=== PATIENT | female | born 1955 | race Caucasian/White ===

== ENCOUNTER 2019-09-02 13:19 | Outpatient (CLI) | payer MEDICARE, SELFPAY ==
--- NOTE | 2019-09-02 13:40 | XR_ITS ---
WS: [id number] LUMBAR SPINE TECHNIQUE: 3 views of the lumbar spine CLINICAL INFORMATION: ACUTE LUMBAR BACK PAIN COMPARISON: None. FINDINGS: Osteopenia. Mild lumbar curve. No acute appearing compression fractures. Mild spondylitic changes. Ch ronic appearing mild compression of the superior endplate at L1 with slight anterior wedging appears new since February 21, 2019 but has a chronic appearance with slight sclerosis. Chronic concave super ior endplate deformity L5 unchanged. Slight anterolisthesis L4 on L5. Moderate facet arthropathy L5-S 1. XR/XR lumbar spine 2-3V* [id number] IMPRESSION: 1. Mild compression of the superior endplate L1 with anterior wedging appears new since February 21, 2019 but has a chronic appearance with sclerosis. Minima l compression. 2. Grade 1 anterolisthesis L4 on L5 is unchanged. 3. Osteopenia. 4. Mild disc space narrowing L3-L4 and L5-S1. 5. Moderate facet arthropathy L5-S1.
== END 2019-09-02 13:20 | disposition home or self-care (01) ==
LOC: RADWPI 13:23
PROVIDERS: Family Provider Family Medicine; PCP Family Medicine; Visit Provider Family Medicine
DX: M54.5 Low back pain (principal); M85.88 Other specified disorders of bone density and structure, other site; M47.817 Spondylosis without myelopathy or radiculopathy, lumbosacral region; M48.07 Spinal stenosis, lumbosacral region
CPT/HCPCS: 72100

== ENCOUNTER 2019-09-17 14:18 | Outpatient (CLI) | payer MEDICARE, SELFPAY ==
--- NOTE | 2019-09-17 14:25 | USCV_ITS ---
India Klein Age: 64 Gender: F : 1955 Exam Date: 09/17/2019 14:25 Ordering Phys: Felisa Rosenthal MD Technologist: Danish Acuna [place] [facility] [place]: [place] Risk Factors: Previous Vascular Surgery: Right Brachial BP: / Left Brachial BP: / Right Left Velocity (cm/s) Spectral Plaque Velocity (cm/s) Spectral Plaque Syst/Diast Broadening Syst/Diast Broadening 71.70/ 14.30 Prox CCA 79.10 / 13.50 54.00/ 12.10 Mid CCA 63.80 / 15.40 63.90/ 14.30 Distal CCA 52.80 / 11.00 92.00/ 21.90 Hetro Prox ICA 72.60 / 19.35 Hetro 111.50/27.20 Mid ICA 84.30 / 23.90 120.10/38.60 Distal ICA 89.50 / 27.00 67.30 ECA 58.60 1.68 ICA/CCA 1.13 Antegrade Vertebral Antegrade 42.90/ 10.00 cm/s 66.60/ 16.60 cm/s Tri Subclavian Tri 63.00 104.0 0 FINDINGS Comparison: none available. No significant elevation of systolic or diastolic velocities. Waveforms are normal. Soft plaque in the proximal left common carotid artery, greater than 3mm diameter. CONCLUSIONS Bilateral ICA stenosis less than 50%. Soft plaque in the proximal left CCA. Dr. Teresa Dean DO (Electronically Signed) Final Date: 18 Sep 2019 07:46 S
--- NOTE | 2019-09-17 14:26 | USCV_ITS ---
India Klein Age: 64 Gender: F : 1955 Exam Date: 09/17/2019 14:36 Ordering Phys: Felisa Rosenthal MD Technologist: Danish Acuna Exam Location: [facility] [place] Indication: PAD HX OF LT LEG STENOSIS Risk Factors: Previous Vascular Surgery: None RIGHT LEFT BP: 144.0 / 71.00 BP: 152.0/ 74.00 0 0 Waveform Velocity (cm/s) Velocity (cm/s) Waveform Triphasic 103.6 Iliac Prox 116.9 Triphasic Triphasic 100.3 Iliac Mid 140.3 Triphasic Triphasic 119.1 Iliac Distal 79.2 Triphasic Triphasic 101.4 EQUINE DENTIST 78.7 Triphasic Triphasic 86.0 SFA Prox 122.3 Triphasic Triphasic 104.7 SFA Mid 111.3 Triphasic Triphasic 97.0 SFA Dist 111.3 Triphasic Triphasic 86.0 POP 68.2 Triphasic Biphasic 61.7 ADDICTION NURSE 55.7 Triphasic Biphasic 34.0 DPA 54.2 Triphasic JOSEPH 1.0 1.2 FINDINGS Normal resting ABIs bilaterally Near normal arterial Doppler waveforms bilaterally Intimal thickening and minimal plaques in the iliac and femoral arteries bilaterally CONCLUSIONS No significant arterial obstruction, based on the above findings Dr Shane Zhao MD [facility] (Electronically Signed) Final Date: 17 Sep 2019 19:10 S
== END 2019-09-17 14:19 | disposition home or self-care (01) ==
LOC: RAD 14:23
PROVIDERS: PCP Family Medicine; Visit Provider Family Medicine
DX: R55 Syncope and collapse (principal); I73.9 Peripheral vascular disease, unspecified; M54.5 Low back pain; I65.23 Occlusion and stenosis of bilateral carotid arteries
CPT/HCPCS: 93880; 93925

== ENCOUNTER 2019-09-26 11:43 | Outpatient (CLI) | payer MEDICARE, SELFPAY ==
--- NOTE | 2019-09-26 11:49 | XR_ITS ---
WS: [id number] THORACIC SPINE TECHNIQUE: AP and lateral views are performed. HISTORY: DORSALGIA, UNSPECIFIED, COMPRESSION FRACTURE OF SPINE COMPARISON: 10/11/2018 Mild increase in the thoracic kyphosis. Disc space narrowing and desiccation with small endplate oste ophytes throughout the thoracic spine. No fractures. No osteoblastic or osteolytic bone disease. Pedi cles are all identified. Mild atherosclerosis aorta. Numerous surgical clips and sutures in the LEFT upper abdomen. XR/XR thoracic spine 3V* [id number] IMPRESSION: Moderate thoracic spondylosis. No fractures.
== END 2019-09-26 11:44 | disposition home or self-care (01) ==
LOC: RADWPI 11:46
PROVIDERS: Family Provider Family Medicine; PCP Family Medicine; Visit Provider Family Medicine
DX: M54.9 Dorsalgia, unspecified (principal); M48.50XA Collapsed vertebra, not elsewhere classified, site unspecified, initial encounter for fracture; M47.814 Spondylosis without myelopathy or radiculopathy, thoracic region
CPT/HCPCS: 72072

== ENCOUNTER 2019-10-16 07:56 | Outpatient (CLI) | payer MEDICARE, SELFPAY ==
--- NOTE | 2019-10-16 08:12 | MR_ITS ---
WS: [id number] MRI LUMBAR SPINE NONCONTRAST HISTORY: PAIN IN RIGHT LOWER LEG COMPARISON: 03/06/2019 TECHNIQUE: Sagittal and axial multisequence imaging is submitted. Increase in thoracic kyphosis. Schmorl's nodes superior endplate of T6. Hemangioma T10. Slight increase in lumbar lordosis. There are 6 nonrib-bearing lumbar type vertebral bodies. This [facility] ilar pattern of numbering was used on 03/06/2019. Mild disc space narrowing and desiccation. Anterior wedging of L2 is stable. No acute new fracture. Conus terminates normally at L2. L1-L2: Mild facet arthritis. No stenosis. L2-L3: Mild annular disc bulging without stenosis. L3-L4: Mild annular disc bulging and facet arthritis. No significant stenosis. Very mild narrowing of the lateral recesses. Similar to the prior study. Small amount of fluid in the RIGHT facet joint. L4-L5: Moderate facet joint arthritis. Osteophyte versus complex synovial cyst from the LEFT facet en croaches on the lateral thecal sac. The L5 nerve root is being displaced anteriorly. Similar in appea jame to the prior study. Mild central stenosis with mild bilateral subarticular recess stenosis grea test on the LEFT. L5-L6: Less than 2 mm anterolisthesis of L5 with annular disc bulging. Facet and ligamentum flavum ar thritis. Facet joint arthritis encroaching upon the lateral recesses and abutting the L6 nerve roots. Similar to the prior study. L6-S1: Mild disc bulging with no stenosis. MR/MR lumbar spine wo con* [id number] IMPRESSION: 1. 6 lumbar type vertebral bodies. This numbering pattern will be important if surgery is ever contemplated. Similar number pattern used as compared to 03/06. 2. No acute lumbar spine fractures. Stable L2 anterior compression fracture. 3. Osteophyte versus complex synovial cyst on the LEFT at L4-5 encroaching upo n the LEFT lateral thecal sac. Resulting in mild central with bilateral subarti cular recess stenosis, greatest on the LEFT. 4. Facet joint encroachment upon the lateral recesses displacing the L6 nerve roots bilaterally at L5-L6. Similar to the prior study.
== END 2019-10-16 07:57 | disposition home or self-care (01) ==
LOC: RADSHAW 08:11
PROVIDERS: PCP Family Medicine; Visit Provider Family Medicine
DX: M79.661 Pain in right lower leg (principal); M48.56XA Collapsed vertebra, not elsewhere classified, lumbar region, initial encounter for fracture; M25.78 Osteophyte, vertebrae
CPT/HCPCS: 72148

== ENCOUNTER 2019-10-31 12:27 | Outpatient (CLI) | payer MEDICARE, SELFPAY ==
--- NOTE | 2019-10-31 12:49 | XRR_ITS ---
PROCEDURE INFORMATION: Exam: XR Lumbosacral Spine, 2 or 3 Views Exam date and time: 10/31/2019 1:01 PM Age: 64 years old Clinical indication: Low back pain; Patient HX: Compression fracture spontaneously-per patient TECHNIQUE: Imaging protocol: XR of the lumbosacral spine, 2 or 3 views. COMPARISON: 1. CR XR lumbar spine 2-3V* [id number] 09/02/2019 1:48 PM 2. Lumbar spine examination 02/21/2019 FINDINGS: Vertebrae: There is a compression fracture present involving the superior endplate of the L1 vertebral body. This finding was not present on prior examination from 2018 but was seen on more recent examination of 2019. 1st degree spondylolisthesis L4-L5 . This finding is stable since prior. There is mild osteoarthritis seen with bone spurs in the anterior aspect of multiple lumbar vertebral bodies. Soft tissues: Calcified aorta without aneurysmal dilatation. XR/XR lumbar spine 2-3V* [id number] IMPRESSION: 1. Subacute compression fracture superior endplate L1 vertebral body 2. Mild osteoarthritis 3. First degree spondylolisthesis L4-L5 stable since prior
== END 2019-10-31 12:28 | disposition home or self-care (01) ==
LOC: RAD 12:31
PROVIDERS: PCP Family Medicine; Visit Provider Family Medicine
DX: S32.010A Wedge compression fracture of first lumbar vertebra, initial encounter for closed fracture (principal); X58.XXXA Exposure to other specified factors, initial encounter; M47.816 Spondylosis without myelopathy or radiculopathy, lumbar region; M43.16 Spondylolisthesis, lumbar region
CPT/HCPCS: 72100

== ENCOUNTER → 2020-04-01 09:33 | Outpatient (BNVA) | payer MEDICARE, SELFPAY | PROVIDERS: PCP Family Medicine; Referring Provider Family Medicine; Visit Provider Anesthesiology Pain Medicine | DX: M54.9 Dorsalgia, unspecified (principal); M47.816 Spondylosis without myelopathy or radiculopathy, lumbar region; M43.10 Spondylolisthesis, site unspecified; M54.16 Radiculopathy, lumbar region; M51.36 Other intervertebral disc degeneration, lumbar region; F17.210 Nicotine dependence, cigarettes, uncomplicated | CPT/HCPCS: 99205 ==

== ENCOUNTER 2020-08-15 21:33 | Observation (INO) | payer MEDICARE, SELFPAY ==
[2020-08-15 21:35] VITALS: BP 177/90; PULSE 66; RESP 15; TEMP 36.4; O2SAT 94; BMI 24.1
--- NOTE | 2020-08-15 21:42 | XR_ITS ---
WS: [id number] Exam: XR chest 1V portable [id number] Date/Time of Exam: 08/15/2020 10:47 PM Reason For Exam: ams Comparison 12/27/2018. The lungs are fully expanded and clear. Unremarkable cardiomediastinal structures and bony elements. Old proximal humeri fractures. No pleural effusions. There is hyperinflation which may indicate COPD. XR/XR chest 1V portable [id number] IMPRESSION: 1. No acute cardiopulmonary finding. No change.
--- NOTE | 2020-08-15 21:42 | CTR_ITS ---
PROCEDURE INFORMATION: Exam: CT Head Without Contrast Exam date and time: 08/15/2020 9:56 PM Age: 65 years old Clinical indication: Altered mental status/memory loss; Confusion or disorientation; Patient HX: Ams/aloc ? accidental od TECHNIQUE: Imaging protocol: Computed tomography of the head without contrast. Radiation optimization: All CT scans at this facility use at least one of these dose optimization techniques: automated exposure control; mA and/or kV adjustment per patient size (includes targeted exams where dose is matched to clinical indication); or iterative reconstruction. ADDITIONAL STUDY INFORMATION: Total DLP (mGy-cm): 852.53 COMPARISON: CT head wo con* [id number] 12/27/2018 4:58 PM FINDINGS: Examination is limited by artifacts from patient motion. There is moderate low density in the bilateral periventricular white matter which may represent chronic small vessel ischemic disease in the appropriate clinical setting. The possibility of superimposed acute infarctions cannot be excluded; consider MRI brain (including diffusion images) for further assessment if clinically warranted and if patient has no contraindication to MRI. Bilateral basal ganglia calcifications may be physiologic/metabolic, left again greater than right. There are prominent intracranial arterial calcifications. Ventricles do not appear significantly dilated. No definite depressed calvarial fracture is demonstrated. Visualized paranasal sinuses and mastoid air cells demonstrate no significant opacification. CT/CT head wo con* [id number] IMPRESSION: Examination is limited by artifacts from patient motion. Probable chronic ischemic changes as discussed above. Radiation Dose CTDIVOL = (mGy): DLP = 852.53 (mGy-cm)
--- NOTE | 2020-08-15 21:43 | ECG_ITS ---
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: : 1955 Requested By: Eligio Enriquez Order Number: [id number] Reading MD: MARYAM SALMERON Measurements Intervals [place] Rate: 70 P: 117 IN: 113 QRS: 113 QRSD: 103 T: 128 QT: 432 QTc: 467 Interpretive Statements SINUS RHYTHM WITH SHORT IN INTERVAL WITH OCCASIONAL VENTRICULAR PREMATURE COMPLEXES LEFT POSTERIOR FASCICULAR BLOCK [QRS AXIS > 109, INFERIOR Q] NONSPECIFIC ST & T-WAVE ABNORMALITY Compared to ECG 12/27/2018 14:59:16 Ventricular premature complex(es) now present Left posterior fascicular block now present T-wave abnormality now present Intraventricular conduction delay no longer present Electronically Signed On 08-16-2020 21:24:21 CDT by MARYAM SALMERON [email or web address]
[2020-08-15 21:50] LABS: ABG PCO2 50.5 mmHg (35-45); ABG PH Result 7.44 (7.35-7.45); Arterial Blood Gas Hematocrit 36.3 % (37-47); Base Excess ABG 8.6 mmol/L (-2.0-2.0); Blood Gas Allen Test Pos; Blood Gas Sample Site Radial, right; Blood Gas Sample Type Arterial; HCO3 ABG 34.2 mmol/L (22-26); Oxygen Device ROOM AIR; PO2 ABG 70.9 mmHg (80.0-100.0)
[2020-08-15 21:56] VITALS: BP 177/90; PULSE 71; RESP 16; O2SAT 98
[2020-08-15] MEDS: sodium chloride 0.9% 1,000 ML 999 ML IV (22:14)
[2020-08-15 22:16] LABS: Basophils % 0.5 %; Eosinophils # 0.2 10^3/uL (0.0-0.8); Eosinophils % 2.6 %; Hematocrit 34.2 % (37.0-47.0); Hemoglobin 11.3 g/dL (11.5-15.3); Lymphocytes # 2.5 10^3/uL (0.8-4.8); Lymphocytes % 40.7 %; Mean Corpuscular Hemoglobin 28.4 pg (28.0-34.0); Mean Corpuscular Volume 85.9 fL (81-99); Mean Platelet Volume 10.1 fL (7.4-10.4); Monocytes # 0.7 10^3/uL (0.2-0.9); Monocytes % 11.4 %; Neutrophils # 2.77 10^3/uL (1.8-7.7); Neutrophils % 44.6 %; Nucleated Red Blood Cells % 0 %; Platelet Count 296 10^3/cmm (130-400); Red Blood Count 3.98 10^6/uL (4.1-5.3); Red Cell Distribution Width 14.6 % (12.1-15.1); White Blood Count 6.2 10^3/uL (4.0-10.0)
[2020-08-15 22:17] LABS: Add Urine Microscopic? NO; Charge for UA Resulting for Rev
[2020-08-15 22:22] LABS: Bilirubin Urine Neg (Negative); Blood Urine Neg (Negative); Glucose Urine UA Trace (Normal); Ketones Urine Negative (Negative); Leukocyte Esterase Urine Negative (Negative); Nitrate Urine Negative (Negative); Protein Urine Neg (Negative); Specific Gravity, Urine 1.005 (1.005-1.030); Urine Appearance Clear (CLEAR); Urine Color Straw (Yellow); Urobilinogen Urine Norm (Negative); pH Urine 7 (5-7)
[2020-08-15 22:31] LABS: Amphetamines Screen Urine Negative (Negative); Barbiturates Screen Urine Negative (Negative); Benzodiazepines Screen Urine Positive (Negative); Cocaine Screen Urine Negative (Negative); Opiate Screen Urine Negative (Negative); PCP Screen Urine Negative (Negative); THC Screen Urine Negative (Negative)
[2020-08-15 22:33] LABS: Lactate (Lactic Acid level) 0.7 mmol/L (0.5-2.2)
[2020-08-15 22:34] LABS: Acetaminophen 7.9 ug/mL (10-30); Alanine Aminotransferase 24 U/L (0-33); Albumin Level 3.6 g/dL (3.5-5.2); Alcohol Level 11 mg/dL (0-10); Alkaline Phosphatase 55 IU/L (35-105); Anion Gap 9.7 (5-19); Aspartate Amino Transferase 28 U/L (0-32); Blood Urea Nitrogen 8 mg/dL (8-23); Calcium 8.4 mg/dL (8.5-10.5); Carbon Dioxide 34 mmol/L (22-29); Chloride 97 mmol/L (98-107); Globulin 2.3 g/dL (1.3-4.6); Glomerular Filtration Rate 84.2 mL/min (90-130); Glucose 63 mg/dL (65-115); Osmolality Calculated 280 mOsm/kg (285-295); Potassium 3.7 mmol/L (3.5-5.1); Sodium 137 mmol/L (136-145); Total Bilirubin 0.2 mg/dL (0.15-1.2); Total Protein 5.9 g/dL (6.6-8.7)
[2020-08-15 22:35] LABS: Salicylate < 0.3 mg/dL (3-10)
[2020-08-15] MEDS: haloperidol inj 5 mg/mL INJ 1 mL 3 MG IVP (22:43)
[2020-08-15] MEDS: LORazepam 2 mg/mL INJ 1 mL 1 MG IVP (22:43)
[2020-08-15] MEDS: midazolam 1 mg/mL INJ 2 mL 2 MG IVP (23:17)
[2020-08-15 23:43] VITALS: BP 161/94; PULSE 64; RESP 16; O2SAT 96
[2020-08-16] VITALS (90 sets, daily range): BP systolic 134–186; BP diastolic 51–125; PULSE 0–96; RESP 5–30; TEMP 36.4–36.9; O2SAT 90–98
[2020-08-16 00:01] LABS: Glucose Point of Care 117 mg/dL (70-110)
--- NOTE | 2020-08-16 01:30 | W.ED.OVERDOS ---
HPI - Overdose General: Chief Complaint: Overdose Stated Complaint: ALOC/ TOOK NUMEROUS MEDS Time Seen by Provider: 08/15/20 21:41 History of Present Illness: HPI Narrative: 65-year-old female who earlier in the day was building fence with her . They came back home, and he went out to feed cattle. When he came back, her pillboxes were open. He believes she may have taken too much of her medication. She is on multiple medications for neuropathy in her legs as well as restless leg syndrome etc. On his arrival, she had an altered level of consciousness, was not making much sense, and was very generally weak. She essentially collapsed, and was weight according to her . When she worsen the bed at home, they called an ambulance. She remains in the similar condition on arrival. MD complaint: accidental overdose Onset (ago): hour(s) Timing confirmed by: spouse Review of Systems Narrative: Review of systems is taken from her Const: Denies: fever(s) Eyes: Denies: change in vision ENMT: Denies: odynophagia or sinus pain Card: Denies: chest pain or palpitations Resp: Denies: dyspnea, productive cough, non-productive cough or wheezing GI: Denies: abdominal pain, nausea or vomiting : Reports: difficulty voiding; Denies: dysuria or hematuria Musc: Reports: back pain Skin/Breast: Denies: rash or erythema Neuro: Reports: confusion; Denies: headache(s) or seizure-like activity Psych: Denies: anxiety PFSH ED PFSH: Family History (Updated 04/01/20 @ 09:55 by GEOVANI Ragsdale) Denies family history of Anesthesia complication Social History (Updated 04/01/20 @ 09:56 by GEOVANI Ragsdale) Smoking and tobacco status: current every day smoker Alcohol intake: never Physical Exam Const: EXAM LIMITATIONS: altered mental status GENERAL APPEARANCE: in distress, ill appearing, frail appearing and appears older than stated age ORIENTATION/CONSCIOUSNESS: Yes patient obtunded Eye: COMMON NORMALS: Equal, round and reactive pupils present and EOMs intact bilaterally PUPIL: Yes Equal, round and reactive pupils present, Yes pupil size - right Right pupil size (mm): 3 and Yes pupil size - left Left pupil size (mm): 3 Chest: COMMONS NORMALS: normal inspection of the chest Resp: COMMON NORMALS: normal respiratory effort, No use of accessory muscles and clear to auscultation bilaterally AUSCULTATION: clear to auscultation bilaterally Cardio: COMMON NORMALS: regular rate and regular rhythm RATE: regular rate RHYTHM: regular rhythm GI: COMMON NORMALS: Normal to inspection, nondistended, normoactive bowel sounds present, Soft to palpation and non-tender PALPATION: Yes Soft to palpation Extremity: COMMON NORMALS: normal to inspection Neuro: SUSI COMA SCALE: document GCS findings [place] coma scale eye opening: To sound [place] coma scale verbal response: Confused [place] coma scale motor response: Localising Susi coma scale total score: 12 COMMON NORMALS: CN's II-XII intact bilaterally and moves all extremities SENSORIUM/ORIENTATION: Yes obtunded Course Consultations: Consultation #1: matias Vital Signs: Vital signs: Vital Signs Temperature 97.5 F L 08/15/20 21:35 Pulse Rate 81 08/16/20 01:32 Respiratory Rate 15 08/16/20 01:32 Blood Pressure 164/81 08/16/20 00:53 Pulse Oximetry 96 08/15/20 23:43 MDM - Overdose MDM Narrative: Medical decision making narrative: On arrival, this patient was very restless she would answer only the simplest of questions with repeated questioning. There was no tonic-clonic movement. However, she was incredibly restless, moving all extremities. She had to be sedated with Versed to get any imaging seemed to help the restlessness. Her pupils were small. There was no vomiting. Her laboratory is not terribly remarkable. Her CT is negative for any acute change. The patient acts as if this is a anabolic and/or medication related change in sensorium. Galvan catheter was placed, and the patient had any 500 mL of urine out in the first 20 minutes or so. She is put out over 4 L while here in the ER. Her notes that she has significant trouble urinating. Taking a look at her medication list, she is on several anticholinergic medications that could be responsible for both her mental status change as well as the urinary retention. She will go to the ICU, as she will need close observation and nursing care. Lab Data: Labs: Lab Results 08/15/20 08/15/20 08/15/20 Range/Units 21:40 22:07 22:07 WBC 6.2 (4.0-10.0) 10^3/ uL RBC 3.98 L (4.1-5.3) 10^6/u L Hgb 11.3 L (11.5-15.3) g/dL Hct 34.2 L (37.0-47.0) % MCV 85.9 (81-99) fL MCH 28.4 (28.0-34.0) pg MCHC 33.0 (30.0-36.0) g/dL RDW 14.6 (12.1-15.1) % Plt Count 296 (130-400) 10^3/c mm MPV 10.1 (7.4-10.4) fL Neut % (Auto) 44.6 % Lymph % (Auto) 40.7 % Davie % (Auto) 11.4 % Eos % (Auto) 2.6 % Baso % (Auto) 0.5 % Neut # (Auto) 2.77 (1.8-7.7) 10^3/u L Lymph # (Auto) 2.5 (0.8-4.8) 10^3/u L Davie # (Auto) 0.7 (0.2-0.9) 10^3/u L Eos # (Auto) 0.2 (0.0-0.8) 10^3/u L Baso # (Auto) 0.0 (0.0-0.1) 10^3/u L Nucleated RBC % (a uto) 0 % Nucleated RBCs # 0.0 /100WBC Specimen Type Arterial Sample Site Radial, right ABG pH 7.44 (7.35-7.45) ABG pCO2 50.5 H (35-45) mmHg ABG pO2 70.9 L (80.0-100.0) mmH g ABG HCO3 34.2 H (22-26) mmol/L ABG Base Excess 8.6 H (-2.0-2.0) mmol/ L Gideon Test Pos Hematocrit 36.3 L (37-47) % O2 Delivery Device Room air Deputy Sheriff Generalist ID [email or web address] Sodium 137 (136-145) mmol/L Potassium 3.7 (3.5-5.1) mmol/L Chloride 97 L (98-107) mmol/L Carbon Dioxide 34 H (22-29) mmol/L Anion Gap 9.7 (5-19) BUN 8 (8-23) mg/dL Creatinine 0.7 (0.5-0.9) mg/dL GFR Calculation 84.2 L (90-130) mL/min Glucose 63 L (65-115) mg/dL POC Glucose (70-110) mg/dL Calculated Osmolal ity 280 L (285-295) mOsm/k g Lactate (0.5-2.2) mmol/L Calcium 8.4 L (8.5-10.5) mg/dL Total Bilirubin 0.2 (0.15-1.2) mg/dL AST 28 (0-32) U/L ALT 24 (0-33) U/L Alkaline Phosphata se 55 (35-105) IU/L Total Protein 5.9 L (6.6-8.7) g/dL Albumin 3.6 (3.5-5.2) g/dL Globulin 2.3 (1.3-4.6) g/dL Urine Color (Yellow) Urine Appearance (CLEAR) Urine pH (5-7) Ur Specific Gravit y (1.005-1.030) Urine Protein (Negative) Urine Glucose (UA) (Normal) Urine Ketones (Negative) Urine Blood (Negative) Urine Nitrate (Negative) Urine Bilirubin (Negative) Urine Urobilinogen (Negative) mg/dL Ur Leukocyte Elisha ase (Negative) Salicylates < 0.3 L (3-10) mg/dL Urine Opiates Scre en (Negative) ng/mL Acetaminophen 7.9 L (10-30) ug/mL Ur Barbiturates Sc reen (Negative) ng/mL Ur Phencyclidine S crn (Negative) ng/mL Ur Amphetamines Sc reen (Negative) ng/mL U Benzodiazepines Scrn (Negative) ng/mL Urine Cocaine Scre en (Negative) ng/mL U Marijuana (THC) Screen (Negative) ng/mL Ethyl Alcohol 11 H (0-10) mg/dL 08/15/20 08/15/20 08/15/20 Range/Units 22:07 22:07 22:07 WBC (4.0-10.0) 10^3/ uL RBC (4.1-5.3) 10^6/u L Hgb (11.5-15.3) g/dL Hct (37.0-47.0) % MCV (81-99) fL MCH (28.0-34.0) pg MCHC (30.0-36.0) g/dL RDW (12.1-15.1) % Plt Count (130-400) 10^3/c mm MPV (7.4-10.4) fL Neut % (Auto) % Lymph % (Auto) % Davie % (Auto) % Eos % (Auto) % Baso % (Auto) % Neut # (Auto) (1.8-7.7) 10^3/u L Lymph # (Auto) (0.8-4.8) 10^3/u L Davie # (Auto) (0.2-0.9) 10^3/u L Eos # (Auto) (0.0-0.8) 10^3/u L Baso # (Auto) (0.0-0.1) 10^3/u L Nucleated RBC % (a uto) % Nucleated RBCs # /100WBC Specimen Type Sample Site ABG pH (7.35-7.45) ABG pCO2 (35-45) mmHg ABG pO2 (80.0-100.0) mmH g ABG HCO3 (22-26) mmol/L ABG Base Excess (-2.0-2.0) mmol/ L Gideon Test Hematocrit (37-47) % O2 Delivery Device Deputy Sheriff Generalist ID Sodium (136-145) mmol/L Potassium (3.5-5.1) mmol/L Chloride (98-107) mmol/L Carbon Dioxide (22-29) mmol/L Anion Gap (5-19) BUN (8-23) mg/dL Creatinine (0.5-0.9) mg/dL GFR Calculation (90-130) mL/min Glucose (65-115) mg/dL POC Glucose (70-110) mg/dL Calculated Osmolal ity (285-295) mOsm/k g Lactate 0.7 (0.5-2.2) mmol/L Calcium (8.5-10.5) mg/dL Total Bilirubin (0.15-1.2) mg/dL AST (0-32) U/L ALT (0-33) U/L Alkaline Phosphata se (35-105) IU/L Total Protein (6.6-8.7) g/dL Albumin (3.5-5.2) g/dL Globulin (1.3-4.6) g/dL Urine Color Straw (Yellow) Urine Appearance Clear (CLEAR) Urine pH 7 (5-7) Ur Specific Gravit y 1.005 (1.005-1.030) Urine Protein Neg (Negative) Urine Glucose (UA) Trace H (Normal) Urine Ketones Negative (Negative) Urine Blood Neg (Negative) Urine Nitrate Negative (Negative) Urine Bilirubin Neg (Negative) Urine Urobilinogen Norm (Negative) mg/dL Ur Leukocyte Elisha ase Negative (Negative) Salicylates (3-10) mg/dL Urine Opiates Scre en Negative (Negative) ng/mL Acetaminophen (10-30) ug/mL Ur Barbiturates Sc reen Negative (Negative) ng/mL Ur Phencyclidine S crn Negative (Negative) ng/mL Ur Amphetamines Sc reen Negative (Negative) ng/mL U Benzodiazepines Scrn Positive H (Negative) ng/mL Urine Cocaine Scre en Negative (Negative) ng/mL U Marijuana (THC) Screen Negative (Negative) ng/mL Ethyl Alcohol (0-10) mg/dL 08/15/20 Range/Units 23:57 WBC (4.0-10.0) 10^3/ uL RBC (4.1-5.3) 10^6/u L Hgb (11.5-15.3) g/dL Hct (37.0-47.0) % MCV (81-99) fL MCH (28.0-34.0) pg MCHC (30.0-36.0) g/dL RDW (12.1-15.1) % Plt Count (130-400) 10^3/c mm MPV (7.4-10.4) fL Neut % (Auto) % Lymph % (Auto) % Davie % (Auto) % Eos % (Auto) % Baso % (Auto) % Neut # (Auto) (1.8-7.7) 10^3/u L Lymph # (Auto) (0.8-4.8) 10^3/u L Davie # (Auto) (0.2-0.9) 10^3/u L Eos # (Auto) (0.0-0.8) 10^3/u L Baso # (Auto) (0.0-0.1) 10^3/u L Nucleated RBC % (a uto) % Nucleated RBCs # /100WBC Specimen Type Sample Site ABG pH (7.35-7.45) ABG pCO2 (35-45) mmHg ABG pO2 (80.0-100.0) mmH g ABG HCO3 (22-26) mmol/L ABG Base Excess (-2.0-2.0) mmol/ L Gideon Test Hematocrit (37-47) % O2 Delivery Device Deputy Sheriff Generalist ID Sodium (136-145) mmol/L Potassium (3.5-5.1) mmol/L Chloride (98-107) mmol/L Carbon Dioxide (22-29) mmol/L Anion Gap (5-19) BUN (8-23) mg/dL Creatinine (0.5-0.9) mg/dL GFR Calculation (90-130) mL/min Glucose (65-115) mg/dL POC Glucose 117 H (70-110) mg/dL Calculated Osmolal ity (285-295) mOsm/k g Lactate (0.5-2.2) mmol/L Calcium (8.5-10.5) mg/dL Total Bilirubin (0.15-1.2) mg/dL AST (0-32) U/L ALT (0-33) U/L Alkaline Phosphata se (35-105) IU/L Total Protein (6.6-8.7) g/dL Albumin (3.5-5.2) g/dL Globulin (1.3-4.6) g/dL Urine Color (Yellow) Urine Appearance (CLEAR) Urine pH (5-7) Ur Specific Gravit y (1.005-1.030) Urine Protein (Negative) Urine Glucose (UA) (Normal) Urine Ketones (Negative) Urine Blood (Negative) Urine Nitrate (Negative) Urine Bilirubin (Negative) Urine Urobilinogen (Negative) mg/dL Ur Leukocyte Elisha ase (Negative) Salicylates (3-10) mg/dL Urine Opiates Scre en (Negative) ng/mL Acetaminophen (10-30) ug/mL Ur Barbiturates Sc reen (Negative) ng/mL Ur Phencyclidine S crn (Negative) ng/mL Ur Amphetamines Sc reen (Negative) ng/mL U Benzodiazepines Scrn (Negative) ng/mL Urine Cocaine Scre en (Negative) ng/mL U Marijuana (THC) Screen (Negative) ng/mL Ethyl Alcohol (0-10) mg/dL Discharge Plan Discharge Patient Disposition: Admitted As Inpatient Admit Provider: Lance Barclay Clinical Impression: Acute alteration in mental status Drug overdose Qualifiers: Encounter type: initial encounter Injury intent: accidental or unintentional Qualified Code(s): T50.901A - Poisoning by unspecified drugs, medicaments and biological substances, accidental (unintentional), initial encounter Condition: Stable Coding Level of Care Code ED Baseball Scout for Chg Fwd Exam Comprehensive
--- NOTE | 2020-08-16 01:39 | P.HP_ITS ---
Providers/Chief Complaint Admitting Physician: Lance Barclay Primary Care Provider: Felisa Rosenthal MD Chief Complaint: ALOC/ TOOK NUMEROUS MEDS History of Present Illness India Klein is a 65 year old female who is brought to emergency room by her due to confusion earlier today. According to her she took excessive amount of pills including lorazepam due to neuropathy and restless leg syndrome which she is struggling with. She was okay before that working outside building a fence on their property. She also received lorazepam, Versed, Haldol due to agitation in emergency room. Currently she is very lethargic but arousable. She gets upset when I wake her up. She does not understand what the reason she is in emergency room. She is oriented. No acute distress. She denies any active complaints. She has insulin-dependent diabetes managed with insulin pump. One of blood sugar measurements emergency room was in mid 60s. However review of the data from her pump ( showed the tacho in her phone) shows no hypoglycemic episodes. Galvan was placed. 2500 cc of urine. The mentions that she has chronic difficulties with urinary retention but refused to take medications for that. No recent fever or chills, nausea or vomiting, diarrhea, chest pain, shortness of breath, cough, palpitations, focal weakness or sensory loss, headache, neck stiffness or pain. Review of Systems General: Reports: 10 or more systems reviewed and unremarkable except in HPI and below Medications/Allergies Home Medications Medication Instructions Recorded Confirmed Last Taken Type abaloparatide 80 mcg SUBCUT DAILY 04/01/20 04/01/20 Unknown History atorvastatin 40 mg tablet 40 mg PO ONCE tab 04/01/20 04/01/20 Unknown History citalopram 20 mg tablet 20 mg PO DAILY 04/01/20 04/01/20 Unknown History gabapentin 100 mg capsule 100 mg PO .4 DAY cap 04/01/20 04/01/20 Unknown History gabapentin 300 mg capsule 300 mg PO TID #90 cap 04/01/20 04/01/20 Unknown Rx insulin lispro 100 unit/mL 5 unit SUBCUT .SLIDING SCALE ml 04/01/20 04/01/20 Unknown History subcutaneous solution lisinopril 10 mg tablet 10 mg PO DAILY 04/01/20 04/01/20 Unknown History ropinirole 2 mg tablet 2 mg PO BID 04/01/20 04/01/20 Unknown History trazodone 100 mg tablet 100 mg PO .1 & HALF hs tab 04/01/20 04/01/20 Unknown History zolpidem 5 mg tablet PO .1 HS tab 04/01/20 04/01/20 Unknown History Allergies Allergy/AdvReac Type Severity Reaction Status Date / Time No Known Allergies Allergy Verified 04/01/20 09:49 PFSH Acute PFSH: Family History (Updated 04/01/20 @ 09:55 by GEOVANI Ragsdale) Denies family history of Anesthesia complication Social History (Updated 04/01/20 @ 09:56 by GEOVANI Ragsdale) Smoking and tobacco status: current every day smoker Alcohol intake: never Vitals/I&O/Wt Last Vital Signs Temp 97.5 F L 08/15/20 21:35 Pulse 81 08/16/20 01:32 Resp 15 08/16/20 01:32 BP 164/81 08/16/20 00:53 Pulse Ox 96 08/15/20 23:43 08/15/20 08/15/20 08/16/20 14:59 22:59 06:59 Output Total 3500 / 3500 Balance -3500 / -3500 Weight last 48 hrs Weight 65.771 kg Physical Exam Narrative: EXAM NARRATIVE: Lethargic but arousable. Responses are adequate. Oriented when awake. Lower extremity twitches are present but no convulsions. When sleeping no acute distress. Gets agitated when woken up. Skin is warm and dry. Moist mucous membranes Eyes PERRL, extraocular muscles are intact Normal speech. No facial asymmetry Neck supple. No JVD Lungs are clear. No respiratory distress Heart S1, S2, regular Abdomen soft, nontender, bowel sounds are present Extremities no edema sinus or calf tenderness bilaterally Moves all extremities. Data : 08/15/20 22:07 08/15/20 22:07 Other Labs: Laboratory Results WBC 6.2 10^3/uL (4.0-10.0) 08/15/20 22:07 RBC 3.98 10^6/uL (4.1-5.3) L 08/15/20 22:07 Hgb 11.3 g/dL (11.5-15.3) L 08/15/20 22:07 Hct 34.2 % (37.0-47.0) L 08/15/20 22:07 MCV 85.9 fL (81-99) 08/15/20 22:07 MCH 28.4 pg (28.0-34.0) 08/15/20 22:07 MCHC 33.0 g/dL (30.0-36.0) 08/15/20 22:07 RDW 14.6 % (12.1-15.1) 08/15/20 22:07 Plt Count 296 10^3/cmm (130-400) 08/15/20 22:07 MPV 10.1 fL (7.4-10.4) 08/15/20 22:07 Neut % (Auto) 44.6 % 08/15/20 22:07 Lymph % (Auto) 40.7 % 08/15/20 22:07 [place] % (Auto) 11.4 % 08/15/20 22:07 Eos % (Auto) 2.6 % 08/15/20 22:07 Baso % (Auto) 0.5 % 08/15/20 22:07 Neut # (Auto) 2.77 10^3/uL (1.8-7.7) 08/15/20 22:07 Lymph # (Auto) 2.5 10^3/uL (0.8-4.8) 08/15/20 22:07 [place] # (Auto) 0.7 10^3/uL (0.2-0.9) 08/15/20 22:07 Eos # (Auto) 0.2 10^3/uL (0.0-0.8) 08/15/20 22:07 Baso # (Auto) 0.0 10^3/uL (0.0-0.1) 08/15/20 22:07 Nucleated RBC % (auto) 0 % 08/15/20 22:07 Nucleated RBCs # 0.0 /100WBC 08/15/20 22:07 Specimen Type Arterial 08/15/20 21:40 Sample Site Radial, right 08/15/20 21:40 ABG pH 7.44 (7.35-7.45) 08/15/20 21:40 ABG pCO2 50.5 mmHg (35-45) H 08/15/20 21:40 ABG pO2 70.9 mmHg (80.0-100.0) L 08/15/20 21:40 ABG HCO3 34.2 mmol/L (22-26) H 08/15/20 21:40 ABG Base Excess 8.6 mmol/L (-2.0-2.0) H 08/15/20 21:40 Gideon Test Pos 08/15/20 21:40 Hematocrit 36.3 % (37-47) L 08/15/20 21:40 O2 Delivery Device Room air 08/15/20 21:40 Supervisor Aircraft [employer] ID [email or web address] 08/15/20 21:40 Sodium 137 mmol/L (136-145) 08/15/20 22:07 Potassium 3.7 mmol/L (3.5-5.1) 08/15/20 22:07 Chloride 97 mmol/L (98-107) L 08/15/20 22:07 Carbon Dioxide 34 mmol/L (22-29) H 08/15/20 22:07 Anion Gap 9.7 (5-19) 08/15/20 22:07 BUN 8 mg/dL (8-23) 08/15/20 22:07 Creatinine 0.7 mg/dL (0.5-0.9) 08/15/20 22:07 GFR Calculation 84.2 mL/min (90-130) L 08/15/20 22:07 Glucose 63 mg/dL (65-115) L 08/15/20 22:07 POC Glucose 117 mg/dL (70-110) H 08/15/20 23:57 Calculated Osmolality 280 mOsm/kg (285-295) L 08/15/20 22:07 Lactate 0.7 mmol/L (0.5-2.2) 08/15/20 22:07 Calcium 8.4 mg/dL (8.5-10.5) L 08/15/20 22:07 Total Bilirubin 0.2 mg/dL (0.15-1.2) 08/15/20 22:07 AST 28 U/L (0-32) 08/15/20 22:07 ALT 24 U/L (0-33) 08/15/20 22:07 Alkaline Phosphatase 55 IU/L (35-105) 08/15/20 22:07 Total Protein 5.9 g/dL (6.6-8.7) L 08/15/20 22:07 Albumin 3.6 g/dL (3.5-5.2) 08/15/20 22:07 Globulin 2.3 g/dL (1.3-4.6) 08/15/20 22:07 Urine Color Straw (Yellow) 08/15/20 22:07 Urine Appearance Clear (CLEAR) 08/15/20 22:07 Urine pH 7 (5-7) 08/15/20 22:07 Ur Specific [place] 1.005 (1.005-1.030) 08/15/20 22:07 Urine Protein Neg (Negative) 08/15/20 22:07 Urine Glucose (UA) Trace (Normal) H 08/15/20 22:07 Urine Ketones Negative (Negative) 08/15/20 22:07 Urine Blood Neg (Negative) 08/15/20 22:07 Urine Nitrate Negative (Negative) 08/15/20 22:07 Urine Bilirubin Neg (Negative) 08/15/20 22:07 Urine Urobilinogen Norm mg/dL (Negative) 08/15/20 22:07 Ur Leukocyte Esterase Negative (Negative) 08/15/20 22:07 Salicylates < 0.3 mg/dL (3-10) L 08/15/20 22:07 Urine Opiates Screen Negative ng/mL (Negative) 08/15/20 22: Acetaminophen 7.9 ug/mL (10-30) L 08/15/20 22:07 Ur Barbiturates Screen Negative ng/mL (Negative) 08/15/20 22:07 Ur Phencyclidine Scrn Negative ng/mL (Negative) 08/15/20 22:07 Ur Amphetamines Screen Negative ng/mL (Negative) 08/15/20 22:07 U Benzodiazepines Scrn Positive ng/mL (Negative) H 08/15/20 22:07 Urine Cocaine Screen Negative ng/mL (Negative) 08/15/20 22:07 U Marijuana (THC) Screen Negative ng/mL (Negative) 08/15/20 22:07 Ethyl Alcohol 11 mg/dL (0-10) H 08/15/20 22:[address] 08/15/20 21:42 IMPRESSION: Examination is limited by artifacts from patient motion. Probable chronic ischemic changes as discussed above. Radiation Dose CTDIVOL = (mGy): DLP = 852.53 (mGy-cm) A&P Additional A&P Information 65-year-old female with past medical history of insulin-dependent diabetes, on insulin pump, restless leg syndrome, peripheral neuropathy who was brought to emergency room due to confusion. Altered mental status. Possible acute metabolic encephalopathy. Polypharmacy suspected. Side effect of lorazepam is possible explanation. Neurologic examination is nonfocal. Another possibility could be acute urinary retention. Will admit for observation to ICU for close monitoring. If her mental status does not improve completely this morning we will consider additional testing. Urinary retention. Galvan catheter. Will provide referral to see a urologist at discharge. Insulin-dependent diabetes. We will continue her insulin pump. Since she is n.p.o. we will start D5 half normal saline with 20 KCl. Will monitor and replace her electrolytes as needed. DVT prophylaxis. Teds and SCDs. I do not expect that she will spend more than several hours in the hospital. If for any reason she remains hospitalized tomorrow we will consider anticoagulation for DVT prophylaxis. CODE STATUS. Code according to her . The plan of care was discussed with the patient and her . Her verbalized understanding and agreement. Attestations Medical Necessity Statement*: Observation 60 minutes were spent on this encounter. Coding Level of Care Code Acute Accountant Certified Public for Kevin Romo
[2020-08-16] MEDS: acetaminophen 325 mg Tablet 650 MG PO ×2 (02:19→13:00)
[2020-08-16] MEDS: D5-NS 0.45% + KCL 20 mEq 20 MEQ/1,000 ML BAG 75 MEQ IV (02:19)
[2020-08-16] MEDS: trazodone 100 mg Tablet PO (03:03)
[2020-08-16 03:49] LABS: Glucose Point of Care 199 mg/dL (70-110)
[2020-08-16 05:07] LABS: Blood Urea Nitrogen 6 mg/dL (8-23); Calcium 8.2 mg/dL (8.5-10.5); Carbon Dioxide 26 mmol/L (22-29); Chloride 99 mmol/L (98-107); Glomerular Filtration Rate 124.2 mL/min (90-130); Glucose 234 mg/dL (65-115); Magnesium 1.9 mg/dL (1.7-2.3); Osmolality Calculated 287 mOsm/kg (285-295); Sodium 136 mmol/L (136-145); Thyroid Stimulating Hormone 1.63 uIU/mL (0.27-4.20)
[2020-08-16 05:26] LABS: Basophils # 0.1 10^3/uL (0.0-0.1); Basophils % 0.5 %; Eosinophils # 0.1 10^3/uL (0.0-0.8); Eosinophils % 1.2 %; Hemoglobin 12.1 g/dL (11.5-15.3); Lymphocytes # 2.6 10^3/uL (0.8-4.8); Lymphocytes % 25.1 %; Mean Corpuscular HGB Conc 32.7 g/dL (30.0-36.0); Mean Corpuscular Hemoglobin 28.9 pg (28.0-34.0); Mean Corpuscular Volume 88.3 fL (81-99); Mean Platelet Volume 10.4 fL (7.4-10.4); Monocytes # 1.1 10^3/uL (0.2-0.9); Monocytes % 10.7 %; Neutrophils # 6.43 10^3/uL (1.8-7.7); Neutrophils % 62.1 %; Nucleated Red Blood Cells % 0 %; Platelet Count 311 10^3/cmm (130-400); Red Blood Count 4.19 10^6/uL (4.1-5.3); Red Cell Distribution Width 14.9 % (12.1-15.1); White Blood Count 10.4 10^3/uL (4.0-10.0)
--- NOTE | 2020-08-16 05:30 | PC.NURSE ---
ASSUMING CARE Patient brought to ICU by DANIELLE Davis. Patient is alert and oriented and able to tell nurse her name, month, and place, but was unfamiliar with what happened. Says I just woke up and was in the emergency room. is at bedside to help keep patient calm, but patient is cooperative and responds to verbal commands well. Patient does continue to have jerking, spastic movements and is verbally frustrated with that, but no other display of aggression or frustration. Home medications reconciled. Galvan catheter in place and draining.
[2020-08-16] MEDS: gabapentin 300 mg Capsule PO (08:54)
--- NOTE | 2020-08-16 09:15 | PC.NURSE ---
Assuming care.... Patient is resting comfortably in bed. Alert and oriented to person, place, time, and situation. Can follow commands. Visitor at bedside.
--- NOTE | 2020-08-16 12:24 | PC.CHAP ---
Pastoral Care Encounter/Spiritual Assessment Type of Contact [x] Declined in store demonstrator visit [] Patient/Family/Request visit [] Outpatient visit [] Follow-up visit [] Physician referral [] Code/Alert [] Routine visit [] Staff referral [] Actively dying [] Patient sleeping [] Family support [] [] Out of room [] Palliative care [] [] Receiving care in room [] Pre-surgical visit [] Trauma [] Long length of stay [] ICU visit [] Other: Relational/Emotional Strength [] Patient feels connected with others/family/visitors/staff [] Distress [] Loneliness/isolation [] Abandonment Spirituality of Patient [] Person of Evelin [] Attends Hoahaoism of their Evelin [] Believes in Prayer [] Reads Bible or Oriental Orthodox materials [] There are Spiritual issues to be addressed 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 [] Prayer [] Active listening [] Non-anxious presence [] Spiritual/emotional support [] Crisis/trauma care [] Spiritual counseling [] Bereavement support [] Provided bereavement packet [] Provided Bible/devotional materials [] Provided toy/stuffed animal, coloring book to patient or family member [] Provided Communion [] Anointing/[place] [] Salvation [] Completed spiritual assessment [] Other: Impact on Illness or Injury [] Angry [] Fearful [] Anxious [] Often cries [] Exhaustion [] Unable to work [] Unable to attend sabianism [] Unable to walk/stand [] Unable to read [] Unable to drive [] Unable to eat/drink [] Unable to sleep [] Unable to be with family [] Patient intubated [] Other: Summary Time spent with patient
--- NOTE | 2020-08-16 14:43 | PM.DCS ---
Discharge Providers Date of Admission: 08/16/20 01:04 Date of Discharge: August 16, 2020 Attending Provider at Admission: Lance Barclay Attending Provider at Discharge: Ugo Peace MD Primary Care Provider: Felisa Rosenthal MD Reason for Visit Reason for Visit: ALOC/ TOOK NUMEROUS MEDS Hospital Course Hospital Course India Klein is a 65 year old female who is brought to emergency room by her due to confusion earlier today. According to her she took excessive amount of pills including lorazepam due to neuropathy and restless leg syndrome which she is struggling with. She was okay before that working outside building a fence on their property. She also received lorazepam, Versed, Haldol due to agitation in emergency room. Currently she is very lethargic but arousable. She gets upset when I wake her up. She does not understand what the reason she is in emergency room. She is oriented. No acute distress. She denies any active complaints. She has insulin-dependent diabetes managed with insulin pump. One of blood sugar measurements emergency room was in mid 60s. However review of the data from her pump ( showed the tacho in her phone) shows no hypoglycemic episodes. Galvan was placed. 2500 cc of urine. The mentions that she has chronic difficulties with urinary retention but refused to take medications for that. No recent fever or chills, nausea or vomiting, diarrhea, chest pain, shortness of breath, cough, palpitations, focal weakness or sensory loss, headache, neck stiffness or pain Patient was admitted to the ICU for monitoring. She did not have any acute events during hospitalization. It is believed patient's symptoms on admission were most likely because of combination of hypoglycemia along with duplication of medications by mistake. On review of insulin pump with the patient the last 2 days patient's blood sugar have been ranging from lowest and 53 with highest being in 380s. Patient was counseled and educated in detail regarding insulin boluses with insulin pump. Patient was also counseled in detail regarding need of bariatric multivitamins for restless leg syndrome post bariatric surgery. She was also counseled in detail regarding using a pillbox to prevent duplication of medications. Possible home health arrangement was discussed with family and patient in detail but the stated patient's daughter who is a nurse will make sure that patient uses pillbox going forward. Medical reconciliation was done through primary care's office. Patient is been discharged in hemodynamically stable condition with advised to follow-up with a primary care provider within next 7 days and to make an appointment with Dr. Cueva/endocrinology office within next 2 weeks for better diabetes control. Patient and family verbalized understanding. They were agreeable with the plan of care. Physical Exam Narrative: EXAM NARRATIVE: AOx3. No acute distress. Fidgety because of restless leg syndrome. Having complete conversations in detail. Mood and affect fair. Skin is warm and dry. Moist mucous membranes Eyes PERRL, extraocular muscles are intact Normal speech. No facial asymmetry Neck supple. No JVD Lungs are clear. No respiratory distress Heart S1, S2, regular Abdomen soft, nontender, bowel sounds are present Extremities no edema sinus or calf tenderness bilaterally Moves all extremities. Discharge Data Data Completed and Pending: Completed Studies During Hospitalization Category Date Time Status CT head wo con* [id number] Urgent Cat Scan 08/15/20 21:42 Completed XR chest 1V jeffrey ble [id number] Urgent Exams 08/15/20 21:42 Completed Labs from last 24 hours 08/16/20 08/16/20 08/16/20 04:03 04:03 03:29 WBC 10.4 H RBC 4.19 Hgb 12.1 Hct 37.0 MCV 88.3 MCH 28.9 MCHC 32.7 RDW 14.9 Plt Count 311 MPV 10.4 Neut % (Auto) 62.1 Lymph % (Auto) 25.1 Evangeline % (Auto) 10.7 Eos % (Auto) 1.2 Baso % (Auto) 0.5 Neut # (Auto) 6.43 Lymph # (Auto) 2.6 Evangeline # (Auto) 1.1 H Eos # (Auto) 0.1 Baso # (Auto) 0.1 Nucleated RBC % (a uto) 0 Nucleated RBCs # 0.0 Specimen Type Sample Site ABG pH ABG pCO2 ABG pO2 ABG HCO3 ABG Base Excess Gideon Test Hematocrit O2 Delivery Device Development Executive ID Sodium 136 Potassium 4.0 Chloride 99 Carbon Dioxide 26 Anion Gap 15.0 BUN 6 L Creatinine 0.5 GFR Calculation 124.2 Glucose 234 H POC Glucose 199 H Calculated Osmolal ity 287 Lactate Calcium 8.2 L Magnesium 1.9 Total Bilirubin AST ALT Alkaline Phosphata se Total Protein Albumin Globulin TSH 1.63 Urine Color Urine Appearance Urine pH Ur Specific Gravit y Urine Protein Urine Glucose (UA) Urine Ketones Urine Blood Urine Nitrate Urine Bilirubin Urine Urobilinogen Ur Leukocyte Elisha ase Salicylates Urine Opiates Scre en Acetaminophen Ur Barbiturates Sc reen Ur Phencyclidine S crn Ur Amphetamines Sc reen U Benzodiazepines Scrn Urine Cocaine Scre en U Marijuana (THC) Screen Ethyl Alcohol 08/15/20 08/15/20 08/15/20 23:57 22:07 22:07 WBC RBC Hgb Hct MCV MCH MCHC RDW Plt Count MPV Neut % (Auto) Lymph % (Auto) Evangeline % (Auto) Eos % (Auto) Baso % (Auto) Neut # (Auto) Lymph # (Auto) Evangeline # (Auto) Eos # (Auto) Baso # (Auto) Nucleated RBC % (a uto) Nucleated RBCs # Specimen Type Sample Site ABG pH ABG pCO2 ABG pO2 ABG HCO3 ABG Base Excess Gideon Test Hematocrit O2 Delivery Device Development Executive ID Sodium Potassium Chloride Carbon Dioxide Anion Gap BUN Creatinine GFR Calculation Glucose POC Glucose 117 H Calculated Osmolal ity Lactate Calcium Magnesium Total Bilirubin AST ALT Alkaline Phosphata se Total Protein Albumin Globulin TSH Urine Color Straw Urine Appearance Clear Urine pH 7 Ur Specific Gravit y 1.005 Urine Protein Neg Urine Glucose (UA) Trace H Urine Ketones Negative Urine Blood Neg Urine Nitrate Negative Urine Bilirubin Neg Urine Urobilinogen Norm Ur Leukocyte Elisha ase Negative Salicylates Urine Opiates Scre en Negative Acetaminophen Ur Barbiturates Sc reen Negative Ur Phencyclidine S crn Negative Ur Amphetamines Sc reen Negative U Benzodiazepines Scrn Positive H Urine Cocaine Scre en Negative U Marijuana (THC) Screen Negative Ethyl Alcohol 08/15/20 08/15/20 08/15/20 22:07 22:07 22:07 WBC 6.2 RBC 3.98 L Hgb 11.3 L Hct 34.2 L MCV 85.9 MCH 28.4 MCHC 33.0 RDW 14.6 Plt Count 296 MPV 10.1 Neut % (Auto) 44.6 Lymph % (Auto) 40.7 Evangeline % (Auto) 11.4 Eos % (Auto) 2.6 Baso % (Auto) 0.5 Neut # (Auto) 2.77 Lymph # (Auto) 2.5 Evangeline # (Auto) 0.7 Eos # (Auto) 0.2 Baso # (Auto) 0.0 Nucleated RBC % (a uto) 0 Nucleated RBCs # 0.0 Specimen Type Sample Site ABG pH ABG pCO2 ABG pO2 ABG HCO3 ABG Base Excess Gideon Test Hematocrit O2 Delivery Device Development Executive ID Sodium 137 Potassium 3.7 Chloride 97 L Carbon Dioxide 34 H Anion Gap 9.7 BUN 8 Creatinine 0.7 GFR Calculation 84.2 L Glucose 63 L POC Glucose Calculated Osmolal ity 280 L Lactate 0.7 Calcium 8.4 L Magnesium Total Bilirubin 0.2 AST 28 ALT 24 Alkaline Phosphata se 55 Total Protein 5.9 L Albumin 3.6 Globulin 2.3 TSH Urine Color Urine Appearance Urine pH Ur Specific Gravit y Urine Protein Urine Glucose (UA) Urine Ketones Urine Blood Urine Nitrate Urine Bilirubin Urine Urobilinogen Ur Leukocyte Elisha ase Salicylates < 0.3 L Urine Opiates Scre en Acetaminophen 7.9 L Ur Barbiturates Sc reen Ur Phencyclidine S crn Ur Amphetamines Sc reen U Benzodiazepines Scrn Urine Cocaine Scre en U Marijuana (THC) Screen Ethyl Alcohol 11 H 08/15/20 21:40 WBC RBC Hgb Hct MCV MCH MCHC RDW Plt Count MPV Neut % (Auto) Lymph % (Auto) Evangeline % (Auto) Eos % (Auto) Baso % (Auto) Neut # (Auto) Lymph # (Auto) Evangeline # (Auto) Eos # (Auto) Baso # (Auto) Nucleated RBC % (a uto) Nucleated RBCs # Specimen Type Arterial Sample Site Radial, right ABG pH 7.44 ABG pCO2 50.5 H ABG pO2 70.9 L ABG HCO3 34.2 H ABG Base Excess 8.6 H Gideon Test Pos Hematocrit 36.3 L O2 Delivery Device Room air Development Executive ID ellpe Sodium Potassium Chloride Carbon Dioxide Anion Gap BUN Creatinine GFR Calculation Glucose POC Glucose Calculated Osmolal ity Lactate Calcium Magnesium Total Bilirubin AST ALT Alkaline Phosphata se Total Protein Albumin Globulin TSH Urine Color Urine Appearance Urine pH Ur Specific Gravit y Urine Protein Urine Glucose (UA) Urine Ketones Urine Blood Urine Nitrate Urine Bilirubin Urine Urobilinogen Ur Leukocyte Elisha ase Salicylates Urine Opiates Scre en Acetaminophen Ur Barbiturates Sc reen Ur Phencyclidine S crn Ur Amphetamines Sc reen U Benzodiazepines Scrn Urine Cocaine Scre en U Marijuana (THC) Screen Ethyl Alcohol Addt'l Data from Hospital Stay: Laboratory Results WBC 10.4 10^3/uL (4.0 -10.0) H 08/16/20 04:03 RBC 4.19 10^6/uL (4.1 -5.3) 08/16/20 04:03 Hgb 12.1 g/dL (11.5-1 5.3) 08/16/20 04:03 Hct 37.0 % (37.0-47.0 ) 08/16/20 04:03 MCV 88.3 fL (81-99) 08/16/20 04:03 MCH 28.9 pg (28.0-34. 0) 08/16/20 04:03 MCHC 32.7 g/dL (30.0-3 6.0) 08/16/20 04:03 RDW 14.9 % (12.1-15.1 ) 08/16/20 04:03 Plt Count 311 10^3/cmm (130 -400) 08/16/20 04:03 MPV 10.4 fL (7.4-10.4 ) 08/16/20 04:03 Neut % (Auto) 62.1 % 08/16/20 04:03 Lymph % (Auto) 25.1 % 08/16/20 04:03 Evangeline % (Auto) 10.7 % 08/16/20 04:03 Eos % (Auto) 1.2 % 08/16/20 04:03 Baso % (Auto) 0.5 % 08/16/20 04:03 Neut # (Auto) 6.43 10^3/uL (1.8 -7.7) 08/16/20 04:03 Lymph # (Auto) 2.6 10^3/uL (0.8- 4.8) 08/16/20 04:03 Evangeline # (Auto) 1.1 10^3/uL (0.2- 0.9) H 08/16/20 04:03 Eos # (Auto) 0.1 10^3/uL (0.0- 0.8) 08/16/20 04:03 Baso # (Auto) 0.1 10^3/uL (0.0- 0.1) 08/16/20 04:03 Nucleated RBC % (a uto) 0 % 08/16/20 04:03 Nucleated RBCs # 0.0 /100WBC 08/16/20 04:03 Specimen Type Arterial 08/15/20 21:40 Sample Site Radial, right 08/15/20 21:40 ABG pH 7.44 (7.35-7.45) 08/15/20 21:40 ABG pCO2 50.5 mmHg (35-45) H 08/15/20 21:40 ABG pO2 70.9 mmHg (80.0-1 00.0) L 08/15/20 21:40 ABG HCO3 34.2 mmol/L (22-2 6) H 08/15/20 21:40 ABG Base Excess 8.6 mmol/L (-2.0- 2.0) H 08/15/20 21:40 Gideon Test Pos 08/15/20 21:40 Hematocrit 36.3 % (37-47) L 08/15/20 21:40 O2 Delivery Device Room air 08/15/20 21:40 Development Executive ID yenny 08/15/20 21:40 Sodium 136 mmol/L (136-1 45) 08/16/20 04:03 Potassium 4.0 mmol/L (3.5-5 .1) 08/16/20 04:03 Chloride 99 mmol/L (98-107 ) 08/16/20 04:03 Carbon Dioxide 26 mmol/L (22-29) 08/16/20 04:03 Anion Gap 15.0 (5-19) 08/16/20 04:03 BUN 6 mg/dL (8-23) L 08/16/20 04:03 Creatinine 0.5 mg/dL (0.5-0. 9) 08/16/20 04:03 GFR Calculation 124.2 mL/min (90- 130) 08/16/20 04:03 Glucose 234 mg/dL (65-115 ) H 08/16/20 04:03 POC Glucose 199 mg/dL (70-110 ) H 08/16/20 03:29 Calculated Osmolal ity 287 mOsm/kg (285- 295) 08/16/20 04:03 Lactate 0.7 mmol/L (0.5-2 .2) 08/15/20 22:07 Calcium 8.2 mg/dL (8.5-10 .5) L 08/16/20 04:03 Magnesium 1.9 mg/dL (1.7-2. 3) 08/16/20 04:03 Total Bilirubin 0.2 mg/dL (0.15-1 .2) 08/15/20 22:07 AST 28 U/L (0-32) 08/15/20 22:07 ALT 24 U/L (0-33) 08/15/20 22:07 Alkaline Phosphata se 55 IU/L (35-105) 08/15/20 22:07 Total Protein 5.9 g/dL (6.6-8.7 ) L 08/15/20 22:07 Albumin 3.6 g/dL (3.5-5.2 ) 08/15/20 22:07 Globulin 2.3 g/dL (1.3-4.6 ) 08/15/20 22:07 TSH 1.63 uIU/mL (0.27 -4.20) 08/16/20 04:03 Urine Color Straw (Yellow) 08/15/20 22:07 Urine Appearance Clear (CLEAR) 08/15/20 22:07 Urine pH 7 (5-7) 08/15/20 22:07 Ur Specific Gravit y 1.005 (1.005-1.0 30) 08/15/20 22:07 Urine Protein Neg (Negative) 08/15/20 22:07 Urine Glucose (UA) Trace (Normal) H 08/15/20 22:07 Urine Ketones Negative (Negati ve) 08/15/20 22:07 Urine Blood Neg (Negative) 08/15/20 22:07 Urine Nitrate Negative (Negati ve) 08/15/20 22:07 Urine Bilirubin Neg (Negative) 08/15/20 22:07 Urine Urobilinogen Norm mg/dL (Negat shruti) 08/15/20 22:07 Ur Leukocyte Elisha ase Negative (Negati ve) 08/15/20 22:07 Salicylates < 0.3 mg/dL (3-10 ) L 08/15/20 22:07 Urine Opiates Scre en Negative ng/mL (N egative) 08/15/20 22:07 Acetaminophen 7.9 ug/mL (10-30) L 08/15/20 22:07 Ur Barbiturates Sc reen Negative ng/mL (N egative) 08/15/20 22:07 Ur Phencyclidine S crn Negative ng/mL (N egative) 08/15/20 22:07 Ur Amphetamines Sc reen Negative ng/mL (N egative) 08/15/20 22:07 U Benzodiazepines Scrn Positive ng/mL (N egative) H 08/15/20 22:07 Urine Cocaine Scre en Negative ng/mL (N egative) 08/15/20 22:07 U Marijuana (THC) Screen Negative ng/mL (N egative) 08/15/20 22:07 Ethyl Alcohol 11 mg/dL (0-10) H 08/15/20 22:07 Impressions Chest X-Ray 08/15/20 21:42 IMPRESSION: 1. No acute cardiopulmonary finding. No change. Head CT 08/15/20 21:42 IMPRESSION: Examination is limited by artifacts from patient motion. Probable chronic ischemic changes as discussed above. Radiation Dose CTDIVOL = (mGy): DLP = 852.53 (mGy-cm) Vitals: Last Vital Signs Temp 98.1 F 08/16/20 07:15 Pulse 75 08/16/20 14:15 Resp 23 H 08/16/20 14:15 BP 137/87 08/16/20 14:15 Pulse Ox 96 08/16/20 14:00 Discharge Plan Discharge Patient Disposition: Home Condition: Stable Prescriptions: New udvpuicr-lhi-mrzt-folic-vit K1 8 mg-400 mcg- 10 mcg tablet,chewable 1 tab PO DAILY Qty: 30 RF: 0 Continued lisinopril 10 mg tablet 10 mg PO DAILY RF: 0 ropinirole 2 mg tablet 2 mg PO BID RF: 0 citalopram 20 mg tablet 20 mg PO DAILY RF: 0 atorvastatin 40 mg tablet 40 mg PO BEDTIME RF: 0 Tymlos 80 mcg (3,120 mcg/1.56 mL) pen injector 80 mcg SUBCUT DAILY RF: 0 trazodone 100 mg tablet 100 mg PO .1 & HALF hs RF: 0 zolpidem 5 mg tablet 10 mg PO .1 HS RF: 0 gabapentin 100 mg capsule 100 mg PO .4 DAY RF: 0 insulin lispro [Humalog U-100 Insulin] 100 unit/mL solution 5 unit SUBCUT .SLIDING SCALE RF: 0 hydrocodone-acetaminophen 5-325 mg tablet PO QID RF: 0 tizanidine 4 mg Capsule 4 mg PO TID PRN (Reason: Muscle Spasm) RF: 0 Discharge Orders: Discharge Order (Routine); Ordered 08/16/20 Ordered By: Ugo Peace Referrals: Felisa Rosenthal MD [Primary Care Provider] - 4-7 days Mila Cueva MD [Physician] - 2 weeks (Diabetes control. Uses insulin pump) Discharge Diet: Cardiac Discharge Activity: Resume usual activity and Increase activity as tolerated Patient Instructions: Opioid Safety Activity Restrictions/Additional Instructions: Please monitor blood sugars as we discussed. You should continue using insulin pump. You should bolus insulin as per the blood sugar levels in 1 hour post meals. Please use pillbox rather than taking medications directly from the bottles to prevent duplication of medications. Please make sure we do not take more than prescribed gabapentin, ropinirole. Please follow-up with your primary care provider within next 1 week. Please make appointment to see Dr. Cueva as per epic anesthesia analyst. Discharge Attestations Time Spent in Discharge Care*: greater than 30 min Specific Discharge Activities: educating patient, educating and/or supporting family/caregiver, discussing with pcp/other providers, discussing with heel caser/social workers/dc planners, documenting/other paperwork and evaluating patient/reviewing data Status at Discharge: Cognitive status at discharge: cognitively intact, Behavioral status at discharge: cooperative, Functional status at discharge: independent ambulation Overall status at discharge: patient is back to baseline Quality Metrics Clinical Quality Measures During this hospital stay, did patient experience: None Coding Level of Care Code Acute [facility] DC note
--- NOTE | 2020-08-16 15:02 | PC.PT ---
Per Nurse Shaun: Patient is independent with transfers, bed mobility, and ambulation. Patient observed at 15:00. She was ambulating independently in room and stated she was waiting on discharge orders. No evaluation required due to independent status and pending discharge orders.
--- NOTE | 2020-08-16 16:17 | PC.RESP ---
Smoking Cessation information sent to patient.
--- NOTE | 2020-08-16 16:18 | PC.NURSE ---
Discharged patient at 1600. Accompanied by spouse and daughter. transported via wheelchair. Medications and instructions reviewed with patient. Discharge assessment completed, and pt signature form signed.
== END 2020-08-16 15:45 | disposition home or self-care (01) ==
LOC: ER 21:59 → ICU 08-16 01:39
PROVIDERS: Admitting Provider Internal Medicine; Emergency Provider Emergency Medicine; PCP Family Medicine; Visit Provider Student in an Organized Health Care Education/Training Program
DX: T42.4X1A Poisoning by benzodiazepines, accidental (unintentional), initial encounter (principal); F17.210 Nicotine dependence, cigarettes, uncomplicated
CPT/HCPCS: 36415; 36416; 36600; 70450; 71045; 80048; 80053; 80306; 80307; 81003; 82803; 82962; 83605; 83735; 84443; 85025; 93005; 96365; 96366; 96375; 99285; G0378; J1630; J2060; J2250; J7030

== ENCOUNTER 2020-08-30 14:06 | Outpatient (CLI) | payer MEDICARE, SELFPAY ==
--- NOTE | 2020-08-30 14:15 | XRR_ITS ---
PROCEDURE INFORMATION: Exam: XR Left Hip Exam date and time: 08/30/2020 2:16 PM Age: 65 years old Clinical indication: Hip pain; Left hip; Additional info: Left hip pain TECHNIQUE: Imaging protocol: XR Left hip. Views: 2 or 3 views hip with pelvis when performed. COMPARISON: CR Hip 2-3v LEFT wwo Pelv* [id number] 09/08/2014 12:20 PM FINDINGS: Bones/joints: Unremarkable. No acute fracture. Soft tissues: Unremarkable. XR/XR hip LT 2-3V wo/w pel* [id number] IMPRESSION: No acute findings.
== END 2020-08-30 14:07 | disposition home or self-care (01) ==
LOC: RAD 14:12
PROVIDERS: PCP Family Medicine; Visit Provider Family Medicine
DX: M25.552 Pain in left hip (principal)
CPT/HCPCS: 73502

== ENCOUNTER 2020-09-09 09:10 | Emergency (ER) | payer MEDICARE, SELFPAY ==
[2020-09-09 09:24] VITALS: BP 148/78; PULSE 78; RESP 16; TEMP 36.3; O2SAT 97; BMI 21.3
--- NOTE | 2020-09-09 09:38 | ECG_ITS ---
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 Measurements Intervals [place] Rate: 76 P: 85 SD: 101 QRS: 75 QRSD: 109 T: 61 QT: 367 QTc: 413 Interpretive Statements SINUS RHYTHM WITH SHORT SD INTERVAL NONSPECIFIC ST & T-WAVE ABNORMALITY Compared to ECG 08/15/2020 21:53:37 Left posterior fascicular block no longer present T-wave abnormality still present Electronically Signed On 09-09-2020 23:46:07 CDT by Shane Zhao M.D. [id number]
--- NOTE | 2020-09-09 09:38 | XRR_ITS ---
PROCEDURE INFORMATION: Exam: XR Chest Exam date and time: 09/09/2020 9:49 AM Age: 65 years old Clinical indication: Other: Weakness, fatigue TECHNIQUE: Imaging protocol: XR of the chest. Views: 1 view. COMPARISON: CR XR chest 1V portable [id number] 08/15/2020 11:15 PM FINDINGS: Lungs: Unremarkable. No consolidation. Pleural spaces: Unremarkable. No pleural effusion. No pneumothorax. Heart/Mediastinum: Unremarkable. No cardiomegaly. Bones/joints: Unremarkable. XR/XR chest 1V portable [id number] IMPRESSION: No significant abnormality.
--- NOTE | 2020-09-09 09:39 | ED_ITS ---
HPI - General Adult General: Chief complaint: General Medical Stated complaint: doesn't feel well Time Seen by Provider: 09/09/20 09:21 History of Present Illness: HPI narrative: Patient's right here today stating that she has had this weakness that starts from her head and goes down to her toes. This is gone on for approximately 3 weeks. It was worse since midnight words happen about 7 times. She says each episode lasts about 1 minute. She did not feel dizzy but she felt like she just might fall over. Just recently in the hospital 2 weeks ago for an overdose. Is recovering bariatric surgery patient. Has also been on multiple pain medications due to multiple breaks. Is diabetic who is on insulin pump. 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 Associated symptoms: Deny chest pain, dyspnea, headache(s), nausea, rash or vomiting Review of Systems Narrative: States onset of a week feeling that runs from her head down to her feet over the last 2 to 3 weeks have lasted about 1 minute approximately. But she had about 7 episodes last night that is why she comes in today because Dr. Woods said that she did have test ran. Const: Denies: fever(s), chills or body aches Eyes: Denies: change in vision or blurry vision ENMT: Denies: throat pain or nasal congestion Card: Denies: chest pain or dyspnea on exertion Resp: Denies: dyspnea, productive cough or non-productive cough GI: Denies: abdominal pain, nausea or vomiting Musc: Denies: extremity pain Skin/Breast: Denies: rash Neuro: Denies: headache(s) Psych: Reports: depression; Denies: anxiety Endy/Lymph: Denies: easy bruising PFSH ED PFSH: Medical History Degenerative lumbar disc Facet arthritis, degenerative, lumbar spine Lumbar radiculopathy Spondylolisthesis Family History Denies family history of Anesthesia complication Social History (Updated 09/09/20 @ 09:32 by Glen Casillas RN) Smoking and tobacco status: current every day smoker cigarettes Packs smoked per day: 2 Years cigarettes smoked: 40 Alcohol intake: never Substance/Drug Use: never Physical Exam Const: COMMON NORMALS: no acute distress, average body habitus and patient oriented x3 HENMT: COMMON NORMALS: normocephalic HEAD & SCALP: normal to inspection and normocephalic FACE & SINUS: normal facial exam Eye: COMMON NORMALS: conjunctivae normal GENERAL EYE: appearance normal, both eyes and all related structures CONJUNCTIVA: Yes conjunctivae normal Neck/C-Spine: COMMON NORMALS: no JVD Chest: COMMONS NORMALS: normal inspection of the chest Resp: COMMON NORMALS: normal respiratory effort and clear to auscultation bilaterally AUSCULTATION: clear to auscultation bilaterally Cardio: COMMON NORMALS: no JVD, regular rate and regular rhythm RATE: regular rate RHYTHM: regular rhythm GI: COMMON NORMALS: Normal to inspection, nondistended, normoactive bowel sounds present Extremity: COMMON NORMALS: normal to inspection and full ROM Neuro: COMMON NORMALS: patient oriented x3 Course Vital Signs: Vital signs: Vital Signs Temperature 97.3 F L 09/09/20 09:24 Pulse Rate 80 09/09/20 12:05 Respiratory Rate 18 09/09/20 12:05 Blood Pressure 148/84 09/09/20 12:05 Pulse Oximetry 94 09/09/20 12:05 MDM - General Adult MDM Narrative: Medical decision making narrative: Discussed patient's laboratory results radiology results. Discussed just recent hospitalization. Patient admits also been depressed and would like to go ahead and have an appointment to the behavioral health care she does see an maintenance worker house trailer about twice a year and and sees their social services assistant every other month in [place] recent medication change includes Flomax and now on Lyrica. Patient just recently started taking her vitamins again for her past bariatric surgery. Where she had a Birdie-en-Y surgery. Patient appears appropriate in the ER does not appear in distress has no neurological or physical manifestations of her complaint where she feels weakness occasionally. Patient was referred to behavioral health care and also follow-up with Dr. Riley if she so desires patient is found to be hypokalemic and was placed on potassium. Advised her to talk to her doctor about her multiple medications and ongoing symptoms. Lab Data: Labs: Lab Results 09/09/20 09/09/20 09/09/20 Range/Units 10:04 10:04 10:40 WBC 11.5 H (4.0-10.0) 10^3/ uL RBC 4.25 (4.1-5.3) 10^6/u L Hgb 12.4 (11.5-15.3) g/dL Hct 36.6 L (37.0-47.0) % MCV 86.1 (81-99) fL MCH 29.2 (28.0-34.0) pg MCHC 33.9 (30.0-36.0) g/dL RDW 15.4 H (12.1-15.1) % Plt Count 339 (130-400) 10^3/c mm MPV 9.6 (7.4-10.4) fL Neut % (Auto) 74.4 % Lymph % (Auto) 16.4 % [place] % (Auto) 8.2 % Eos % (Auto) 0.3 % Baso % (Auto) 0.3 % Neut # (Auto) 8.58 H (1.8-7.7) 10^3/u L Lymph # (Auto) 1.9 (0.8-4.8) 10^3/u L [place] # (Auto) 1.0 H (0.2-0.9) 10^3/u L Eos # (Auto) 0.0 (0.0-0.8) 10^3/u L Baso # (Auto) 0.0 (0.0-0.1) 10^3/u L Nucleated RBC % (a uto) 0 % Nucleated RBCs # 0.0 /100WBC Sodium 132 L (136-145) mmol/L Potassium 3.3 L (3.5-5.1) mmol/L Chloride 92 L (98-107) mmol/L Carbon Dioxide 32 H (22-29) mmol/L Anion Gap 11.3 (5-19) BUN 13 (8-23) mg/dL Creatinine 0.6 (0.5-0.9) mg/dL GFR Calculation 100.6 (90-130) mL/min Glucose 150 H (65-115) mg/dL Calculated Osmolal ity 277 L (285-295) mOsm/k g Calcium 8.4 L (8.5-10.5) mg/dL Magnesium 2.1 (1.7-2.3) mg/dL Total Bilirubin 0.3 (0.15-1.2) mg/dL AST 19 (0-32) U/L ALT 20 (0-33) U/L Alkaline Phosphata se 71 (35-105) IU/L Total Protein 6.6 (6.6-8.7) g/dL Albumin 3.8 (3.5-5.2) g/dL Globulin 2.8 (1.3-4.6) g/dL TSH 0.85 (0.27-4.20) uIU/ mL Urine Color Yellow (Yellow) Urine Appearance Clear (CLEAR) Urine pH 5 (5-7) Ur Specific Gravit y 1.010 (1.005-1.030) Urine Protein Neg (Negative) Urine Glucose (UA) Norm (Normal) Urine Ketones Negative (Negative) Urine Blood Neg (Negative) Urine Nitrate Negative (Negative) Urine Bilirubin 1+ H (Negative) Urine Urobilinogen 1 H (Negative) mg/dL Ur Leukocyte Elisha ase Negative (Negative) Urine Opiates Scre en (Negative) ng/mL Ur Barbiturates Sc reen (Negative) ng/mL Ur Phencyclidine S crn (Negative) ng/mL Ur Amphetamines Sc reen (Negative) ng/mL U Benzodiazepines Scrn (Negative) ng/mL Urine Cocaine Scre en (Negative) ng/mL U Marijuana (THC) Screen (Negative) ng/mL 09/09/20 Range/Units 10:40 WBC (4.0-10.0) 10^3/ uL RBC (4.1-5.3) 10^6/u L Hgb (11.5-15.3) g/dL Hct (37.0-47.0) % MCV (81-99) fL MCH (28.0-34.0) pg MCHC (30.0-36.0) g/dL RDW (12.1-15.1) % Plt Count (130-400) 10^3/c mm MPV (7.4-10.4) fL Neut % (Auto) % Lymph % (Auto) % [place] % (Auto) % Eos % (Auto) % Baso % (Auto) % Neut # (Auto) (1.8-7.7) 10^3/u L Lymph # (Auto) (0.8-4.8) 10^3/u L [place] # (Auto) (0.2-0.9) 10^3/u L Eos # (Auto) (0.0-0.8) 10^3/u L Baso # (Auto) (0.0-0.1) 10^3/u L Nucleated RBC % (a uto) % Nucleated RBCs # /100WBC Sodium (136-145) mmol/L Potassium (3.5-5.1) mmol/L Chloride (98-107) mmol/L Carbon Dioxide (22-29) mmol/L Anion Gap (5-19) BUN (8-23) mg/dL Creatinine (0.5-0.9) mg/dL GFR Calculation (90-130) mL/min Glucose (65-115) mg/dL Calculated Osmolal ity (285-295) mOsm/k g Calcium (8.5-10.5) mg/dL Magnesium (1.7-2.3) mg/dL Total Bilirubin (0.15-1.2) mg/dL AST (0-32) U/L ALT (0-33) U/L Alkaline Phosphata se (35-105) IU/L Total Protein (6.6-8.7) g/dL Albumin (3.5-5.2) g/dL Globulin (1.3-4.6) g/dL TSH (0.27-4.20) uIU/ mL Urine Color (Yellow) Urine Appearance (CLEAR) Urine pH (5-7) Ur Specific Gravit y (1.005-1.030) Urine Protein (Negative) Urine Glucose (UA) (Normal) Urine Ketones (Negative) Urine Blood (Negative) Urine Nitrate (Negative) Urine Bilirubin (Negative) Urine Urobilinogen (Negative) mg/dL Ur Leukocyte Elisha ase (Negative) Urine Opiates Scre en Negative (Negative) ng/mL Ur Barbiturates Sc reen Negative (Negative) ng/mL Ur Phencyclidine S crn Negative (Negative) ng/mL Ur Amphetamines Sc reen Negative (Negative) ng/mL U Benzodiazepines Scrn Positive H (Negative) ng/mL Urine Cocaine Scre en Negative (Negative) ng/mL U Marijuana (THC) Screen Negative (Negative) ng/mL EKG Data^: EKG 1: EKG interpretation date: 09/09/20 EKG interpretation time: 10:19 Computer generated interpretation: Chest X-Ray 09/09/20 09:38 IMPRESSION: No significant abnormality. Sinus rhythm with short ID interval ventricular rate 76 bpm ID interval 101 ms QRS durations 109 ms QT is 367 ms Discharge Plan Discharge Patient Disposition: Home Clinical Impression: Hypokalemia Depressed Qualifiers: Depression Type: reactive depression Qualified Code(s): F32.9 - Major depressive disorder, single episode, unspecified Condition: Stable Prescriptions: New K-Tab 20 mEq tablet extended release 20 meq PO DAILY Qty: 20 RF: 0 No Action lisinopril 10 mg tablet 10 mg PO DAILY RF: 0 ropinirole 2 mg tablet 2 mg PO BEDTIME RF: 0 citalopram 20 mg tablet 20 mg PO DAILY RF: 0 atorvastatin 40 mg tablet 40 mg PO BEDTIME RF: 0 Tymlos 80 mcg (3,120 mcg/1.56 mL) pen injector 80 mcg SUBCUT DAILY RF: 0 trazodone 100 mg tablet 150 mg PO BEDTIME RF: 0 zolpidem 5 mg tablet 10 mg PO BEDTIME RF: 0 insulin lispro [Humalog U-100 Insulin] 100 unit/mL solution 5 unit SUBCUT TID RF: 0 tamsulosin [Flomax] 0.4 mg capsule 0.4 mg PO DAILY RF: 0 meloxicam 15 mg tablet 15 mg PO DAILY RF: 0 oxycodone-acetaminophen 5-325 mg tablet 1 tab PO Q6H PRN (Reason: Pain) RF: 0 pregabalin 50 mg capsule 50 mg PO BID RF: 0 pllyelyb-ugk-tdof-folic-vit K1 8 mg-400 mcg- 10 mcg tablet,chewable 3 tab PO DAILY RF: 0 tizanidine 4 mg Capsule 4 mg PO TID PRN (Reason: Muscle Spasm) RF: 0 Discharge Orders: Discharge ED (Routine); Ordered 09/09/20 Ordered By: Brant Pantoja Referrals: Felisa Rosenthal MD [Primary Care Provider] - Discharge Diet: Usual diet Discharge Activity: Increase activity as tolerated Patient Instructions: Hypokalemia (ED), Depression (ED) Activity Restrictions/Additional Instructions: Follow-up with medical provider as directed. Take medications as prescribed. Return to the ER or your medical provider if condition worsens. Please read and understand discharge instructions. If any questions ask please. Follow-up with Dr. Woods next week to have your potassium rechecked. Hospital will contact you with an appointment for behavioral mental health appointment. Coding Level of Care Code ED Aerospace Medicine Physician for Chg Fwd Exam Comprehensive
[2020-09-09 10:02] VITALS: BP 148/78; PULSE 78; RESP 16; O2SAT 95
[2020-09-09 10:13] LABS: Basophils % 0.3 %; Eosinophils % 0.3 %; Hematocrit 36.6 % (37.0-47.0); Hemoglobin 12.4 g/dL (11.5-15.3); Lymphocytes # 1.9 10^3/uL (0.8-4.8); Lymphocytes % 16.4 %; Mean Corpuscular HGB Conc 33.9 g/dL (30.0-36.0); Mean Corpuscular Hemoglobin 29.2 pg (28.0-34.0); Mean Corpuscular Volume 86.1 fL (81-99); Mean Platelet Volume 9.6 fL (7.4-10.4); Monocytes % 8.2 %; Neutrophils # 8.58 10^3/uL (1.8-7.7); Neutrophils % 74.4 %; Nucleated Red Blood Cells % 0 %; Platelet Count 339 10^3/cmm (130-400); Red Blood Count 4.25 10^6/uL (4.1-5.3); Red Cell Distribution Width 15.4 % (12.1-15.1); White Blood Count 11.5 10^3/uL (4.0-10.0)
[2020-09-09 10:43] LABS: Alanine Aminotransferase 20 U/L (0-33); Albumin Level 3.8 g/dL (3.5-5.2); Alkaline Phosphatase 71 IU/L (35-105); Anion Gap 11.3 (5-19); Aspartate Amino Transferase 19 U/L (0-32); Blood Urea Nitrogen 13 mg/dL (8-23); Calcium 8.4 mg/dL (8.5-10.5); Carbon Dioxide 32 mmol/L (22-29); Chloride 92 mmol/L (98-107); Globulin 2.8 g/dL (1.3-4.6); Glomerular Filtration Rate 100.6 mL/min (90-130); Glucose 150 mg/dL (65-115); Magnesium 2.1 mg/dL (1.7-2.3); Osmolality Calculated 277 mOsm/kg (285-295); Potassium 3.3 mmol/L (3.5-5.1); Sodium 132 mmol/L (136-145); Thyroid Stimulating Hormone 0.85 uIU/mL (0.27-4.20); Total Bilirubin 0.3 mg/dL (0.15-1.2); Total Protein 6.6 g/dL (6.6-8.7)
[2020-09-09 10:46] LABS: Add Urine Microscopic? NO; Charge for UA Resulting for Rev
[2020-09-09 10:47] LABS: Bilirubin Urine 1+ (Negative); Blood Urine Neg (Negative); Glucose Urine UA Norm (Normal); Ketones Urine Negative (Negative); Leukocyte Esterase Urine Negative (Negative); Nitrate Urine Negative (Negative); Protein Urine Neg (Negative); Urine Appearance Clear (CLEAR); Urine Color Yellow (Yellow); Urobilinogen Urine 1 mg/dL (Negative); pH Urine 5 (5-7)
[2020-09-09 10:56] LABS: Amphetamines Screen Urine Negative (Negative); Barbiturates Screen Urine Negative (Negative); Benzodiazepines Screen Urine Positive (Negative); Cocaine Screen Urine Negative (Negative); Opiate Screen Urine Negative (Negative); PCP Screen Urine Negative (Negative); THC Screen Urine Negative (Negative)
[2020-09-09] MEDS: potassium chloride ER 20 mEq Tablet PO (11:32)
[2020-09-09 12:05] VITALS: BP 148/84; PULSE 80; RESP 18; O2SAT 94
--- NOTE | 2020-09-09 14:08 | DCPLANNER ---
farm manager had message to speak with patient about services at [facility]. [facility] called phone number [phone] to discuss the different services at [facility]. farm manager unable to speak with patient at this time, a voicemail was left for patient to return case sealer phone call.
== END 2020-09-09 12:05 | disposition home or self-care (01) ==
PROVIDERS: Emergency Provider Nurse Practitioner Family; PCP Family Medicine
DX: E87.6 Hypokalemia (principal); F32.9 Major depressive disorder, single episode, unspecified; Z79.4 Long term (current) use of insulin; F17.210 Nicotine dependence, cigarettes, uncomplicated; Z79.899 Other long term (current) drug therapy
CPT/HCPCS: 71045; 80053; 80306; 81003; 83735; 84443; 85025; 93005; 99283

== ENCOUNTER 2020-09-30 07:02 | Outpatient (CLI) | payer MEDICARE, SELFPAY ==
--- NOTE | 2020-09-30 07:15 | MR_ITS ---
WS: [id number] MRI LEFT HIP without CONTRAST. COMPARISON: Radiograph 08/30/2020 Multiplanar, multisequence imaging is performed without contrast. Prior ORIF RIGHT hip. Mild narrowing of the RIGHT hip joint with no displacement or fracture. There is mild narrowing of the LEFT hip joint. No fracture. Focal marrow edema and subchondral edema in the posterior LEFT femoral neck measures roughly 17 mm x 12. Flattening of the posterior cortex wi th overlying cortical irregularity and increased signal in the cartilage. Otherwise appearance of the hip is normal. Cannot confirm labral tear on this evaluation. Small amount of free fluid in the pelvis. MR/MR hip LT wo con* [id number] IMPRESSION: 1. Subchondral edema in the posterior LEFT humeral head, 17 x 12 mm. May be an area of osteonecrosis or prior injury. The overlying cartilage contains increa sed signal also consistent with an osteochondral lesion. 2. Prior RIGHT hip ORIF.
== END 2020-09-30 07:03 | disposition home or self-care (01) ==
LOC: RADSHAW 07:06
PROVIDERS: PCP Family Medicine; Visit Provider Family Medicine
DX: M25.552 Pain in left hip (principal); R60.0 Localized edema
CPT/HCPCS: 73721

== ENCOUNTER 2020-11-19 06:54 | Outpatient (CLI) | payer MEDICARE, SELFPAY ==
--- NOTE | 2020-11-19 07:05 | US_ITS ---
WS: [id number] ULTRASOUND RENAL TECHNIQUE: Ultrasound examination of both kidneys. CLINICAL INFORMATION: RETENTION OF URINE COMPARISON: None. FINDINGS: RIGHT: Right kidney is normal in size and appearance. Echogenicity: Normal. Cortical thickness: 1.6 cm; Normal. Hydronephrosis: None. Perinephric fluid: None. Right kidney measures: 10.3 cm x 6.0 cm x 4.3 cm. LEFT: Left kidney is normal in size and appearance. Echogenicity: Normal. Cortical thickness: 1.5 cm; Normal. Hydronephrosis: None. Perinephric fluid: None. Left kidney measures: 9.3 cm x 5.4 cm x 4.4 cm. Normal visualized aorta.Prevoid bladder 219 cc. Postvoid 6 cc. Normal emptying. US/US renal BI with PV bladder IMPRESSION: 1. Prevoid bladder 219 cc. Postvoid 6 cc. Normal emptying. 2. No hydronephrosis in either kidney.
== END 2020-11-19 06:55 | disposition home or self-care (01) ==
PROVIDERS: PCP Family Medicine; Visit Provider Family Medicine
DX: R33.9 Retention of urine, unspecified (principal)
CPT/HCPCS: 76770; 76857

== ENCOUNTER 2021-01-26 12:47 | Outpatient (CLI) | payer MEDICARE, SELFPAY ==
--- NOTE | 2021-01-26 13:02 | XR_ITS ---
WS: [id number] XR sacrum coccyx min 2V [id number] REASON FOR EXAM: fall FINDINGS: No fracture or dislocation of the sacrum or coccyx is identified. No soft tissue abnormality noted. There are significant compression deformities of L4 and L5 not present on previous examination of 10/21. XR/XR sacrum coccyx min 2V [id number] IMPRESSION: No fracture of the sacrum and coccyx identified. Biconcave compression deformities of L4-L5 not present on 10/31/2019. Chronicity unknown, cannot exclude acute or subacute compression fracture.
== END 2021-01-26 12:48 | disposition home or self-care (01) ==
LOC: RAD 12:57
PROVIDERS: PCP Family Medicine; Visit Provider Nurse Practitioner Family
DX: M53.3 Sacrococcygeal disorders, not elsewhere classified (principal); W19.XXXA Unspecified fall, initial encounter
CPT/HCPCS: 72220

== ENCOUNTER → 2021-06-28 08:32 | Outpatient (BNVA) | payer MEDICARE, SELFPAY | PROVIDERS: PCP Family Medicine; Visit Provider Internal Medicine | DX: E10.9 Type 1 diabetes mellitus without complications (principal); E16.0 Drug-induced hypoglycemia without coma; T38.3X5A Adverse effect of insulin and oral hypoglycemic [antidiabetic] drugs, initial encounter; F17.210 Nicotine dependence, cigarettes, uncomplicated; Z79.4 Long term (current) use of insulin | CPT/HCPCS: 99214 ==

== ENCOUNTER → 2021-10-13 14:44 | Outpatient (BNVA) | payer MEDICARE, SELFPAY | PROVIDERS: PCP Family Medicine; Visit Provider Internal Medicine | DX: E10.649 Type 1 diabetes mellitus with hypoglycemia without coma (principal); E16.0 Drug-induced hypoglycemia without coma; T38.3X5A Adverse effect of insulin and oral hypoglycemic [antidiabetic] drugs, initial encounter; E78.2 Mixed hyperlipidemia; Z79.4 Long term (current) use of insulin; F17.210 Nicotine dependence, cigarettes, uncomplicated | CPT/HCPCS: 80053; 80061; 83036; 99214 ==

== ENCOUNTER → 2022-01-09 08:25 | Outpatient (BNVA) | payer MEDICARE, SELFPAY | PROVIDERS: PCP Family Medicine; Visit Provider Internal Medicine | DX: E10.649 Type 1 diabetes mellitus with hypoglycemia without coma (principal); E16.0 Drug-induced hypoglycemia without coma; T38.3X5A Adverse effect of insulin and oral hypoglycemic [antidiabetic] drugs, initial encounter; E78.2 Mixed hyperlipidemia | CPT/HCPCS: 99214 ==

== ENCOUNTER 2022-03-30 17:59 | Observation (INO) | payer MEDICARE, SELFPAY ==
[2022-03-30] VITALS (32 sets, daily range): BP systolic 164–202; BP diastolic 82–106; PULSE 79–86; RESP 14–26; TEMP 36.7; O2SAT 91–96; BMI 20.6
--- NOTE | 2022-03-30 19:00 | ECG_ITS ---
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 Measurements Intervals [place] Rate: 85 P: 54 MT: 116 QRS: 35 QRSD: 102 T: 28 QT: 321 QTc: 383 Interpretive Statements SINUS RHYTHM WITH SHORT MT INTERVAL NONSPECIFIC ST & T-WAVE ABNORMALITY Compared to ECG 09/09/2020 10:15:28 No significant changes Electronically Signed On 03-31-2022 13:11:30 [employer] by Kimberly Smallwood M.D. [id number]
--- NOTE | 2022-03-30 19:02 | ED_ITS ---
HPI - Overdose General: Chief Complaint: Overdose Stated Complaint: Confusion, weakness Time Seen by Provider: 03/30/22 18:25 Source: patient, family and EMS Mode of arrival: EMS History of Present Illness: Patient was transported to the emergency department by EMS at the family's request. states that he came on this afternoon and found her laying on the floor. He states she was in her normal state of health before he left earlier in the day. He did state that she had been sitting on the toilet trying to urinate earlier in the day. She does have free access to all her medications but he does not think she is taken more than her prescribed amount of medications. She is diabetic but her blood sugar was in the 160s to 170s by her glucometer and insulin pump. No history of trauma. There is some questionable history of medication misadventures in the past. MD complaint: accidental overdose Review of Systems Const: Denies: fever(s) Eyes: Denies: change in vision ENMT: Denies: throat pain, odynophagia, nasal discharge or nasal congestion Card: Denies: chest pain, palpitations or irregular heart rhythm Resp: Denies: dyspnea, productive cough or non-productive cough GI: Denies: nausea or vomiting : Reports: difficulty voiding, urinary urgency and oliguria; Denies: flank pain, vaginal bleeding or vaginal discharge Musc: Reports: extremity pain; Denies: neck pain, back pain or extremity swelling Skin/Breast: Denies: rash Neuro: Reports: confusion; Denies: seizure-like activity Psych: Reports: depression; Denies: hopelessness, loss of interest or suicidal ideation [facility] ED PFSH: Medical History Anxiety Chronic back pain Degenerative lumbar disc Diabetes Facet arthritis, degenerative, lumbar spine Hx of fracture of hip 10/2018-RIGHT HIP Hyperlipidemia Hypertension Lumbar radiculopathy Opioid contract exists Spondylolisthesis Surgical History Hx of knee surgery LEFT KNEE X2 Family History Denies family history of Anesthesia complication Social History Smoking and tobacco status: current every day smoker (2 packs a day ) cigarettes Packs smoked per day: 2 Years cigarettes smoked: 40 Alcohol intake: never Physical Exam Narrative: EXAM NARRATIVE: She primarily keeps her eyes closed but will open her eyes to voice and will make some attempts and answering questions. She appears calm. Const: COMMON NORMALS: average body habitus GENERAL APPEARANCE: cooperative; no odor of alcohol detected ORIENTATION/CONSCIOUSNESS: Yes awake HENMT: COMMON NORMALS: normocephalic, atraumatic, Normal nasal mucous membranes and turbinates present and moist oral mucous membranes HEAD & SCALP: normocephalic and atraumatic FACE & SINUS: normal facial exam NOSE: Normal nasal mucous membranes and turbinates present Eye: COMMON NORMALS: Equal, round and reactive pupils present, EOMs intact bilaterally and conjunctivae normal CONJUNCTIVA: Yes conjunctivae normal PUPIL: Yes Equal, round and reactive pupils present Neck/C-Spine: COMMON NORMALS: full ROM, no lymphadenopathy and supple Chest: COMMONS NORMALS: normal inspection of the chest Resp: COMMON NORMALS: normal respiratory effort, No retractions, No use of accessory muscles and clear to auscultation bilaterally AUSCULTATION: clear to auscultation bilaterally Cardio: COMMON NORMALS: regular rate, regular rhythm, No murmurs present (Cardio) and Peripheral pulses 2+ throughout RATE: regular rate RHYTHM: regular rhythm PERIPHERAL PULSES: Peripheral pulses 2+ throughout GI: COMMON NORMALS: no masses and no bruits INSPECTION: Yes abdominal distension (Lower abdomen) : COMMON NORMALS: Yes no CVA tenderness BLADDER/KIDNEY EXAM: Yes no CVA tenderness Back/Pelvis: COMMON NORMALS: no CVA tenderness, thoracic and lumbar spine normal to inspection, no thoracic nor lumbar tenderness and thoraco-lumbar ROM normal Extremity: COMMON NORMALS: normal to inspection, full ROM, no calf tenderness and no pedal edema Neuro: COMMON NORMALS: moves all extremities, no focal motor deficits and no sensory deficits noted Course Reevaluation(s): Reevaluation #1: Patient's daughter is now present and provides additional illuminating information. She states that her mother has had similar presentations in the past. They state that she has had some misadventures with medications because she is trying to take care of her chronic pain. There is been no definitive etiology given to her pain but it certainly sounds like its neuropathic pain related to her diabetes as they state that it is primarily in her legs. There is been no concerns about suicidality, self-harm etc. Bedside ultrasound was used to visualize urinary bladder which is markedly distended. Time: 19:27 Reevaluation #2: The patient is a bit more alert but certainly not back to her baseline which is collaborated by her daughter. She has had a significant urine output after her Galvan was placed. It is unclear as why she has hyponatremia. Potentially she could be in the volume depleted category of hyponatremia given her amount of urine in her bladder. We will start her on a low-dose of saline and discussed with hospitalist regarding observation. I did also obtain a noncontrast CT to ensure that there was no other RACK WASHER related issues that contribute to her mental status. Time: 22:26 Vital Signs: Vital signs: Vital Signs Temperature 98.1 F 03/30/22 18:09 Pulse Rate 80 03/30/22 22:10 Respiratory Rate 18 03/30/22 22:10 Blood Pressure 189/105 03/30/22 22:15 Pulse Oximetry 95 03/30/22 19:56 Oxygen Delivery Me thod 03/30/22 19:56 MDM - Overdose Medical Decision Making Patient brought to the emergency department by her family with history of changed mental status and more confusion that is progressed over the last day or 2 as best can be gleaned from the history. Her examination was nonfocal with exception of significant urinary retention discovered by ultrasound. A Galvan catheter was placed and she had greater than 2 L of urine output. Subsequent work-up revealed her to be hyponatremic suggestive of possible volume depletion given her diabetes as well as her urinary retention. We will place her in observation to ensure that she returns back to baseline. I have also provided the family with my thoughts on sequestering her medications to prevent any additional medication misadventures. She has no history of depression or suicidality and the family are were adamant that they did not think this was an attempt to harm her self but just to manage her chronic pain. Urology will obviously be involved in her urinary retention issues. Medical Records I reviewed the patient's medical records. Lab Data I reviewed the patient's lab results. 03/30/22 18:40 03/30/22 18:[address] 03/30/22 22:06 IMPRESSION: 1. No focal hemorrhage or midline shift. 2. Chronic findings are again seen, virtually identical to 08/15/2020. These include: Left basal ganglia dystrophic calcification, an adjacent area of small infarction, and age-related changes. Laboratory Results WBC 6.8 10^3/uL (4.0-10.0) 03/30/22 18:40 RBC 4.80 10^6/uL (4.1-5.3) 03/30/22 18:40 Hgb 13.8 g/dL (11.5-15.3) 03/30/22 18:40 Hct 41.6 % (37.0-47.0) 03/30/22 18:40 MCV 86.7 fl (81-99) 03/30/22 18:40 MCH 28.8 pg (28.0-34.0) 03/30/22 18:40 MCHC 33.2 g/dL (30.0-36.0) 03/30/22 18:40 RDW 15.2 % (12.1-15.1) H 03/30/22 18:40 Plt Count 376 10^3/cmm (130-400) 03/30/22 18:40 MPV 10.4 fL (7.4-10.4) 03/30/22 18:40 Neut % (Auto) 72.3 % 03/30/22 18:40 Lymph % (Auto) 17.6 % 03/30/22 18:40 [place] % (Auto) 9.3 % 03/30/22 18:40 Eos % (Auto) 0.1 % 03/30/22 18:40 Baso % (Auto) 0.6 % 03/30/22 18:40 Neut # (Auto) 4.87 10^3/uL (1.8-7.7) 03/30/22 18:40 Lymph # (Auto) 1.2 10^3/uL (0.8-4.8) 03/30/22 18:40 [place] # (Auto) 0.6 10^3/uL (0.2-0.9) 03/30/22 18:40 Eos # (Auto) 0.0 10^3/uL (0.0-0.8) 03/30/22 18:40 Baso # (Auto) 0.0 10^3/uL (0.0-0.1) 03/30/22 18:40 Nucleated RBC % (auto) 0 % 03/30/22 18:40 Nucleated RBCs # 0.0 /100WBC 03/30/22 18:40 Sodium 126 mmol/L (136-145) L 03/30/22 18:40 Potassium 3.7 mmol/L (3.5-5.1) 03/30/22 18:40 Chloride 85 mmol/L (98-107) L 03/30/22 18:40 Carbon Dioxide 30 mmol/L (22-29) H 03/30/22 18:40 Anion Gap 14.7 (5-19) 03/30/22 18:40 BUN 9 mg/dL (8-23) 03/30/22 18:40 Creatinine 0.8 mg/dL (0.5-0.9) 03/30/22 18:40 GFR Calculation 71.8 mL/min (90-130) L 03/30/22 18:40 Glucose 156 mg/dL (65-115) H 03/30/22 18:40 POC Glucose 188 mg/dL (70-110) H 03/30/22 19:24 Calculated Osmolality 264 mOsm/kg (285-295) L 03/30/22 18:40 Calcium 10.2 mg/dL (8.5-10.5) 03/30/22 18:40 Total Bilirubin 0.4 mg/dL (0.15-1.2) 03/30/22 18:40 AST 24 U/L (0-32) 03/30/22 18:40 ALT 19 U/L (0-33) 03/30/22 18:40 Alkaline Phosphatase 91 U/L (35-105) 03/30/22 18:40 Total Protein 7.7 g/dL (6.6-8.7) 03/30/22 18:40 Albumin 4.3 g/dL (3.5-5.2) 03/30/22 18:40 Globulin 3.4 g/dL (1.3-4.6) 03/30/22 18:40 Urine Color Yellow (Yellow) 03/30/22 19:50 Urine Appearance Clear (CLEAR) 03/30/22 19:50 Urine pH 5 (5-7) 03/30/22 19:50 Ur Specific [place] 1.010 (1.005-1.030) 03/30/22 19:50 Urine Protein Neg (Negative) 03/30/22 19:50 Urine Glucose (UA) Norm (Normal) 03/30/22 19:50 Urine Ketones Negative (Negative) 03/30/22 19:50 Urine Blood Neg (Negative) 03/30/22 19:50 Urine Nitrate Negative (Negative) 03/30/22 19:50 Urine Bilirubin Neg (Negative) 03/30/22 19:50 Urine Urobilinogen Norm mg/dL (Negative) 03/30/22 19:50 Ur Leukocyte Esterase Negative (Negative) 03/30/22 19:50 Salicylates < 0.3 mg/dL (3-10) L 03/30/22 18:40 Acetaminophen 13.3 ug/mL (10-30) 03/30/22 18:40 Ethyl Alcohol < 10 mg/dL (0-10) 03/30/22 18:40 Discharge Plan Discharge Patient Disposition: Placed in Observation Clinical Impression: Medication adverse effect, Hyponatremia, Urinary retention Condition: Stable Prescriptions: No Action lisinopril 10 mg tablet 10 mg PO DAILY atorvastatin 40 mg tablet 40 mg PO BEDTIME Tymlos 80 mcg (3,120 mcg/1.56 mL) pen injector 80 mcg SUBCUT DAILY Rx Instructions: inject into abdomen; do not inject within 2 inches of belly button/navel; rotate sites trazodone 100 mg tablet 150 mg PO BEDTIME zolpidem 5 mg tablet 10 mg PO BEDTIME tamsulosin [Flomax] 0.4 mg capsule 0.4 mg PO DAILY (DME) Dexcom G6 Welder Operator Misc See Rx Instructions .Route Qty: 1 0RF Rx Instructions: Check BS 4-6 times a day. (DME) Dexcom G6 Sensor Device See Rx Instructions .Route Qty: 3 3RF Rx Instructions: Change every 10 days. (DME) Dexcom G6 Transmitter Device See Rx Instructions .Route Qty: 1 3RF Rx Instructions: Change every 90 days. Lantus Solostar U-100 Insulin 100 unit/mL (3 mL) insulin pen 10 unit SUBCUT DAILY Qty: 3 3RF Rx Instructions: Inject 10 units subcut daily. insulin lispro [Humalog U-100 Insulin] 100 unit/mL solution See Rx Instructions .ROUTE .COMPLEX Qty: 50 3RF Rx Instructions: Via pump. Max dose 150 units per day. oxycodone-acetaminophen 5-325 mg tablet 1 tab PO Q6H PRN (Reason: Pain) pregabalin 50 mg capsule 50 mg PO BID mmpthppu-day-eueh-folic-vit K1 8 mg-400 mcg- 10 mcg tablet,chewable 3 tab PO DAILY K-Tab 20 mEq tablet extended release 20 meq PO DAILY Qty: 20 0RF Referrals: Felisa Rosenthal MD [Primary Care Provider] - Coding Level of Care Code ED Shape Brick Molder for Chg Fwd Exam Comprehensive
[2022-03-30 19:09] LABS: Basophils % 0.6 %; Eosinophils % 0.1 %; Hematocrit 41.6 % (37.0-47.0); Hemoglobin 13.8 g/dL (11.5-15.3); Lymphocytes # 1.2 10^3/uL (0.8-4.8); Lymphocytes % 17.6 %; Mean Corpuscular HGB Conc 33.2 g/dL (30.0-36.0); Mean Corpuscular Hemoglobin 28.8 pg (28.0-34.0); Mean Corpuscular Volume 86.7 fl (81-99); Mean Platelet Volume 10.4 fL (7.4-10.4); Monocytes # 0.6 10^3/uL (0.2-0.9); Monocytes % 9.3 %; Neutrophils # 4.87 10^3/uL (1.8-7.7); Neutrophils % 72.3 %; Nucleated Red Blood Cells % 0 %; Platelet Count 376 10^3/cmm (130-400); Red Cell Distribution Width 15.2 % (12.1-15.1); White Blood Count 6.8 10^3/uL (4.0-10.0)
[2022-03-30 19:28] LABS: Glucose Point of Care 188 mg/dL (70-110)
[2022-03-30 19:32] LABS: Acetaminophen 13.3 ug/mL (10-30); Alanine Aminotransferase 19 U/L (0-33); Albumin Level 4.3 g/dL (3.5-5.2); Alkaline Phosphatase 91 U/L (35-105); Anion Gap 14.7 (5-19); Aspartate Amino Transferase 24 U/L (0-32); Blood Urea Nitrogen 9 mg/dL (8-23); Calcium 10.2 mg/dL (8.5-10.5); Carbon Dioxide 30 mmol/L (22-29); Chloride 85 mmol/L (98-107); Globulin 3.4 g/dL (1.3-4.6); Glomerular Filtration Rate 71.8 mL/min (90-130); Glucose 156 mg/dL (65-115); Osmolality Calculated 264 mOsm/kg (285-295); Potassium 3.7 mmol/L (3.5-5.1); Sodium 126 mmol/L (136-145); Total Bilirubin 0.4 mg/dL (0.15-1.2); Total Protein 7.7 g/dL (6.6-8.7)
[2022-03-30 19:39] LABS: Alcohol Level < 10 mg/dL (0-10); Salicylate < 0.3 mg/dL (3-10)
[2022-03-30 20:18] LABS: Add Urine Microscopic? NO; Charge for UA Resulting for Rev
[2022-03-30 20:55] LABS: Bilirubin Urine Neg (Negative); Blood Urine Neg (Negative); Glucose Urine UA Norm (Normal); Ketones Urine Negative (Negative); Nitrate Urine Negative (Negative); Protein Urine Neg (Negative); Urine Appearance Clear (CLEAR); Urine Color Yellow (Yellow); Urobilinogen Urine Norm (Negative); pH Urine 5 (5-7)
[2022-03-30 20:56] LABS: Leukocyte Esterase Urine Negative (Negative)
--- NOTE | 2022-03-30 22:03 | PC.NURSE ---
2550 out via Galvan Catheter.
--- NOTE | 2022-03-30 22:06 | CTR_ITS ---
PROCEDURE INFORMATION: Exam: CT Head Without Contrast Exam date and time: 03/30/2022 10:15 PM Age: 67 years old Clinical indication: Altered mental status/memory loss; Patient HX: Patient found on floor at home by family. Patient very lethargic. ; Additional info: AMS TECHNIQUE: Imaging protocol: Computed tomography of the head without contrast. Radiation optimization: All CT scans at this facility use at least one of these dose optimization techniques: automated exposure control; mA and/or kV adjustment per patient size (includes targeted exams where dose is matched to clinical indication); or iterative reconstruction. COMPARISON: CT head wo con* [id number] 08/15/2020 11:44 PM RADIATION DOSE METRICS: Total DLP (mGy-cm): 947.28 FINDINGS: Brain: No focal hemorrhage or midline shift is identified. Unchanged left basal ganglia dystrophic calcification. Adjacent small area of encephalomalacia again noted. The findings are virtually identical to 08/15/2020. Mild atrophy and mild chronic cerebral white matter ischemia. Cerebral ventricles: No ventriculomegaly or evidence of acute hydrocephalus. Paranasal sinuses: The partially assessed sinuses are grossly clear. Mastoid air cells: Visualized mastoid air cells are well aerated. Bones/joints: No displaced skull fracture is noted. Soft tissues: Unremarkable. Vasculature: Diffuse vascular calcification. CT/CT head wo con* [id number] IMPRESSION: 1. No focal hemorrhage or midline shift. 2. Chronic findings are again seen, virtually identical to 08/15/2020. These include: Left basal ganglia dystrophic calcification, an adjacent area of small infarction, and age-related changes.
--- NOTE | 2022-03-30 23:02 | P.HP_ITS ---
Providers/Chief Complaint Admitting Physician: Adrianna López MD Primary Care Provider: Felisa Rosenthal MD Chief Complaint: Confusion, weakness History of Present Illness India Klein is a 67 year old female with history of chronic back pain, type 1 diabetes mellitus on insulin pump, hyperlipidemia, hypertension, spondylolisthesis, anxiety presents to the hospital today with altered mental status. Patient's daughter is at bedside who provided the history. She states that patient had gastric bypass in 2009 and had a Birdie-en-Y procedure and lost 80 pounds. Ever since then she has developed osteoporosis as she was not taking the bariatric vitamins as directed. She has had frequent UTIs, frequent falls and several fractures but most recent fracture being her left hand middle finger. She says in 2010 patient had a femur fracture after falling from a ladder while she was cleaning gutters. Ever since then she has had hip pain and been on oxycodone. Patient also has peripheral neuropathy. She has had both her knees replaced in the past. She has broken her arm 2-3 times. Patient manages her diabetes with an insulin pump and sometimes overnight has low blood sugars. She says that she is on trazodone, oxycodone, Ambien. Patient manages her medications herself and takes them to wear she gets altered and then forgets about her pain. She does not purposely overdose however forgets that she has taken the medications and then takes second time doses later. She has been on Aricept and Namenda for possible early onset dementia however she forgets to take those as well. Patient has been taking more medication than needed. Patient lives at home with her . She also sees Dr. Melo for urinary retention issues. She was supposed to be on Flomax however has not taken it over a month. Daughter unable to confirm the rest of patient's medications. ED course: Blood pressure 189/105 on arrival, respiratory rate 18, pulse 80, temperature 98.1. Patient altered. Had significant urinary retention. Gao catheter placed he will 52 L of urine. Work-up reveals her to be hyponatremic at sodium 126. CT head showed no focal hemorrhage or midline shift. Chronic findings identical to July 2020 present which are left basal ganglia dystrophic calcification, adjacent area of small infarction and age-related changes. Medications/Allergies Home Medications Medication Instructions Recorded Confirmed Last Taken Type abaloparatide (Tymlos) 80 mcg SUBCUT DAILY 12/10/20 09/19/22 05/19/21 History atorvastatin 40 mg tablet 40 mg PO BEDTIME 04/01/20 01/09/22 09/08/20 History lisinopril 10 mg tablet 10 mg PO DAILY 04/01/20 01/09/22 09/09/20 History trazodone 100 mg tablet 150 mg PO BEDTIME 04/01/20 01/09/22 09/08/20 History zolpidem 5 mg tablet 10 mg PO BEDTIME 04/01/20 01/09/22 09/08/20 History tamsulosin 0.4 mg capsule (Flomax) 0.4 mg PO DAILY 09/03/20 01/09/22 09/09/20 History aodbvsya-eipegaji-bpqu 8 mg-folic 3 tab PO DAILY 09/09/20 01/09/22 09/09/20 History ac 400 mcg-vit K 10 mcg chew tablet oxycodone-acetaminophen 5 mg-325 1 tab PO Q6H PRN Pain 09/09/20 01/09/22 09/08/20 History mg tablet potassium chloride 20 mEq 20 meq PO DAILY #20 tabs 09/09/20 01/09/22 Unknown Rx tablet,extended release (K-Tab) pregabalin 50 mg capsule 50 mg PO BID 09/09/20 01/09/22 09/09/20 History blood-glucose meter,continuous #1 ea 07/08/21 01/09/22 Unknown Rx (Dexcom G6 Dramatic Critic misc) blood-glucose sensor (Dexcom G6 #3 ea 07/08/21 01/09/22 Unknown Rx Sensor device) blood-glucose transmitter (Dexcom #1 ea 07/08/21 01/09/22 Unknown Rx G6 Transmitter device) insulin glargine 100 unit/mL (3 10 unit (0.1 mL) SUBCUT DAILY #3 mL 08/12/21 01/09/22 Unknown Rx mL) subcutaneous pen (Lantus Solostar U-100 Insulin) insulin lispro 100 unit/mL See Rx Instructions .Route 08/23/21 01/09/22 Unknown Rx subcutaneous solution (Humalog .COMPLEX #50 mL U-100 Insulin) Allergies Allergy/AdvReac Type Severity Reaction Status Date / Time No Known Allergies Allergy Verified 01/09/22 08:34 PFSH Acute PFSH: Medical History (Updated 03/31/22 @ 01:52 by Adrianna López MD) Anxiety Chronic back pain Degenerative lumbar disc Diabetes Facet arthritis, degenerative, lumbar spine Hx of fracture of hip 10/2018-RIGHT HIP Hyperlipidemia Hypertension Lumbar radiculopathy Opioid contract exists Spondylolisthesis Surgical History Hx of knee surgery LEFT KNEE X2 Family History Denies family history of Anesthesia complication Social History Smoking and tobacco status: current every day smoker (2 packs a day ) cigarettes Packs smoked per day: 2 Years cigarettes smoked: 40 Alcohol intake: never Vitals/I&O/Wt Last Vital Signs Temp 98.1 F 03/30/22 18:09 Pulse 82 03/30/22 23:38 Resp 16 03/30/22 23:38 BP 164/82 03/30/22 23:38 Pulse Ox 91 03/30/22 23:38 O2 Del Method 03/30/22 19:56 Weight last 48 hrs Weight 56.245 kg Physical Exam Narrative: Alert and oriented to self only. Generally confused. Not lethargic. Does have her eyes closed at time of encounter. Does answer some questions. No acute distress. Skin warm and dry, moist mucous membranes EOMI, normal cephalic, atraumatic Speech is normal, no facial asymmetry. Lungs clear to auscultation bilaterally no wheezes or rhonchi appreciated anterior lung chung Normal S1-S2, regular rate rhythm Abdomen soft nontender, bowel sounds positive No lower extremity edema bilaterally. Moves all 4 extremities. Urinary Catheter Management: Gao: Cath Placed During This Visit: yes Urinary Catheter Date of Insertion: 03/30/22 Urinary Catheter Time of Insertion: 20:01 Data 03/30/22 18:40 03/30/22 18:40 A&P Assessment and plan (1) Medication adverse effect: (2) Hyponatremia: (3) Urinary retention: (4) Hyperlipemia, mixed: (5) Hypoglycemia due to insulin: (6) DM type 1 (diabetes mellitus, type 1): (7) Smoker: (8) Drug overdose: Qualifiers: Encounter type: initial encounter Injury intent: accidental or unintentional Qualified Code(s): T50.901A - Poisoning by unspecified drugs, medicaments and biological substances, accidental (unintentional), initial encounter (9) Acute alteration in mental status: (10) Hypertension: (11) Hyperlipidemia: Plan #Hyponatremia, sodium 126. #Acute urinary retention #Altered mental status #Unintentional drug overdose #History of early dementia #Frequent falls #Polypharmacy #Type 1 diabetes mellitus complicated by peripheral neuropathy #Restless leg syndrome #Chronic pain #History of gastric bypass 2010 #Osteoporosis #History of several fractures at various locations #Hyperlipidemia, hypertension ? Urinalysis normal ? Check vitamin B12 ? We will need to confirm all of patient's home medications. Family to bring them in AM. ? Hold all listed home meds for now ? PT OT ? Consider walker at discharge ? Continue every 2 hour blood glucose checks. Patient is wearing a Dexcom sensor. Nurse to chart glucose. ? Continue insulin pump at this time. ? Hold home trazodone, Ambien, hydrocodone at this time ? Case management consult for possible home health set up. Family and patient not interested in skilled nursing at this time. ? Patient's daughter is a nurse and very well versed with patient's history. I discussed with her that patient should not be managing her own medications. ? Ethanol level negative, Tylenol level negative, salicylate negative ? Check urine drug screen. ? Check urine osmolality, serum osmolality, urine sodium. Every [address] on normal saline 60 cc/h. - Noncompliance to medications - Continue gao catheter at this time. Restart flomax. Full code DVT prophylaxis: Lovenox Attestations Medical Necessity Statement*: Observation admission hyponatremia, altered mental status Coding Level of Care Code Acute Scales Inspector for g Fwd Diagnoses Medication adverse effect T50.905A Hyponatremia E87.1 Urinary retention R33.9 Hyperlipemia, mixed E78.2 Hypoglycemia due to insulin E16.0; T38.3X5A DM type 1 (diabetes mellitus, type 1) E10.9 Smoker F17.200 Drug overdose T50.901A Encounter type: initial encounter Injury intent: accidental or unintentional Acute alteration in mental status R41.82 Hypertension I10 Hyperlipidemia E78.5
[2022-03-30] MEDS: sodium chloride 0.9% 1,000 ML 60 ML IV (23:39)
[2022-03-31 00:23] VITALS: BP 179/82; PULSE 77; RESP 16; TEMP 36.8; O2SAT 92
[2022-03-31 01:12] LABS: Anion Gap 11.7 (5-19); Blood Urea Nitrogen 7 mg/dL (8-23); Calcium 9.4 mg/dL (8.5-10.5); Carbon Dioxide 31 mmol/L (22-29); Chloride 94 mmol/L (98-107); Glucose 175 mg/dL (65-115); Osmolality Calculated 278 mOsm/kg (285-295); Potassium 3.7 mmol/L (3.5-5.1); Sodium 133 mmol/L (136-145)
[2022-03-31] MEDS: sodium chloride 0.9% 1,000 ML 60 ML IV (01:12)
[2022-03-31 01:17] LABS: Thyroid Stimulating Hormone 1.65 uIU/mL (0.27-4.20)
[2022-03-31] MEDS: enoxaparin 40 mg/0.4 mL Syringe SUBCUT (01:28)
[2022-03-31 02:19] LABS: Estmated Average Glucose 157; Hemoglobin A1C 7.1 % (4.0-6.0)
[2022-03-31] MEDS: hyDRALAzine 20 mg/mL INJ 1 mL 10 MG IVP (03:00)
[2022-03-31] MEDS: tamsulosin 0.4 mg Capsule PO ×2 (03:00→09:19)
[2022-03-31 04:02] LABS: Basophils % 0.4 %; Eosinophils % 0.1 %; Hemoglobin 12.6 g/dL (11.5-15.3); Lymphocytes % 29.1 %; Mean Corpuscular HGB Conc 34.1 g/dL (30.0-36.0); Mean Corpuscular Hemoglobin 28.6 pg (28.0-34.0); Mean Corpuscular Volume 83.9 fl (81-99); Mean Platelet Volume 10.1 fL (7.4-10.4); Monocytes # 0.8 10^3/uL (0.2-0.9); Monocytes % 11.5 %; Neutrophils # 3.97 10^3/uL (1.8-7.7); Neutrophils % 58.6 %; Nucleated Red Blood Cells % 0 %; Platelet Count 351 10^3/cmm (130-400); Red Blood Count 4.41 10^6/uL (4.1-5.3); Red Cell Distribution Width 14.8 % (12.1-15.1); White Blood Count 6.8 10^3/uL (4.0-10.0)
[2022-03-31 04:14] VITALS: BP 167/71; PULSE 97; RESP 17; TEMP 37.3; O2SAT 90
[2022-03-31 04:30] LABS: Anion Gap 12.7 (5-19); Blood Urea Nitrogen 7 mg/dL (8-23); Calcium 9.4 mg/dL (8.5-10.5); Carbon Dioxide 30 mmol/L (22-29); Chloride 95 mmol/L (98-107); Glomerular Filtration Rate 83.7 mL/min (90-130); Glucose 167 mg/dL (65-115); Magnesium 1.6 mg/dL (1.7-2.3); Osmolality Calculated 280 mOsm/kg (285-295); Phosphorus 3.2 mg/dL (2.5-4.5); Potassium 3.7 mmol/L (3.5-5.1); Sodium 134 mmol/L (136-145)
[2022-03-31 06:57] LABS: Urine Random Sodium 71 mmol/L
[2022-03-31 07:05] LABS: Glucose Point of Care 197 mg/dL (70-110)
[2022-03-31 07:36] VITALS: BP 149/73; PULSE 91; RESP 15; TEMP 36.7; O2SAT 93
[2022-03-31 08:35] LABS: Anion Gap 12.3 (5-19); Blood Urea Nitrogen 7 mg/dL (8-23); Calcium 8.9 mg/dL (8.5-10.5); Carbon Dioxide 29 mmol/L (22-29); Chloride 95 mmol/L (98-107); Glucose 162 mg/dL (65-115); Osmolality Calculated 278 mOsm/kg (285-295); Potassium 3.3 mmol/L (3.5-5.1); Sodium 133 mmol/L (136-145)
[2022-03-31] MEDS: magnesium sulfate premix 2 GM/50 ML PIGGYBACK IV (09:20)
[2022-03-31] MEDS: lisinopril 10 mg Tablet PO (09:20)
[2022-03-31] MEDS: lidocaine 1% 5 ML in potassium chloride premix 100 ML 50 ML IV (11:01)
--- NOTE | 2022-03-31 11:12 | PC.CHAP ---
Pastoral Care Encounter/Spiritual Assessment Type of Contact [] Declined central office inspector visit [] Patient/Family/Request visit [] Outpatient visit [] Follow-up visit [] Physician referral [] Code/Alert [x] Routine visit [] Staff referral [] Actively dying [] Patient sleeping [] Family support [] [] Out of room [] Palliative care [] [x] Receiving care in room [] Pre-surgical visit [] Trauma [] Long length of stay [] ICU visit [] Other: Relational/Emotional Strength [] Patient feels connected with others/family/visitors/staff [] Distress [] Loneliness/isolation [] Abandonment Spirituality of Patient [] Person of Evelin [] Attends Holiness of their Evelin [] Believes in Prayer [] Reads Bible or Confucianist materials [] There are Spiritual issues to be addressed Student Services Coordinator Interventions [x] Prayer [] Active listening [] Non-anxious presence [] Spiritual/emotional support [] Crisis/trauma care [] Spiritual counseling [] Bereavement support [] Provided bereavement packet [] Provided Bible/devotional materials [] Provided toy/stuffed animal, coloring book to patient or family member [] Provided Communion [] Anointing/[place] [] Salvation [] Completed spiritual assessment [] Other: Impact on Illness or Injury [] Angry [] Fearful [] Anxious [] Often cries [] Exhaustion [] Unable to work [] Unable to attend adventist [] Unable to walk/stand [] Unable to read [] Unable to drive [] Unable to eat/drink [] Unable to sleep [] Unable to be with family [] Patient intubated [] Other: Summary Time spent with patient
[2022-03-31 11:24] VITALS: BP 124/62; PULSE 80; RESP 16; TEMP 36.4; O2SAT 91
[2022-03-31 11:24] LABS: Glucose Point of Care 119 mg/dL (70-110)
--- NOTE | 2022-03-31 14:37 | PM.PN ---
Subjective Subjective: Patient was seen and examined this morning,she was alert,awake, oriented* 3 ,denied any nausea,vomiting,headache,muscle cramp,abdominal pain.Wanted her Galvan catheter to be removed, serum sodium this morning is 133, serum k: 3.3 , ma.6. Her other Vitals and labs have been reviewed. Medications: Medication Review Details: Generic Name Dose Route Start Last Admin Trade Name Enriqueq PRN Reason Stop Dose Admin Enoxaparin Sodium 40 mg 03/30/22 23:45 03/31/22 01:28 Enoxaparin 40 Mg /0.4 Ml Syringe SUBCUT 40 mg Q24H BIANCA Administration Lisinopril 10 mg 03/31/22 09:00 03/31/22 09:20 Lisinopril 10 Mg Tablet PO 10 mg DAILY BIANCA Administration Tamsulosin HCl 0.4 mg 03/31/22 01:55 03/31/22 09:19 Tamsulosin 0.4 M g Capsule PO 0.4 mg DAILY BIANCA Administration Vitals/I&O/Wt Last Vital Signs Temp 97.6 F 03/31/22 11:24 Pulse 80 03/31/22 11:24 Resp 16 03/31/22 11:24 BP 124/62 03/31/22 11:24 Pulse Ox 91 03/31/22 11:24 O2 Del Method 03/31/22 11:24 03/30/22 03/31/22 03/31/22 22:59 06:59 14:59 Intake Total 93 / 93 155 / 155 Output Total 1150 / 1150 Balance -1057 / -1057 155 / 155 Weight last 48 hrs Weight 56.245 kg Physical Exam Resp: COMMON NORMALS: clear to auscultation bilaterally EFFORT & INSPECTION: Yes symmetric chest movement AUSCULTATION: clear to auscultation bilaterally Cardio: COMMON NORMALS: regular rate, regular rhythm, S1 normal heart sound present, S2 normal heart sound present, No gallops present (Cardio), No murmurs present (Cardio), No rub (Cardio) and Peripheral pulses 2+ throughout RATE: regular rate RHYTHM: regular rhythm HEART SOUNDS: S1 normal heart sound present and S2 normal heart sound present PERIPHERAL PULSES: Peripheral pulses 2+ throughout GI: COMMON NORMALS: Normal to inspection, nondistended, normoactive bowel sounds present, Soft to palpation, non-tender, No hepatosplenomegaly present and no masses AUSCULTATION: Yes normoactive bowel sounds PALPATION: Yes Soft to palpation and Yes No hepatosplenomegaly present RECTAL EXAM: deferred Urinary Catheter Management: Galvan: Cath Placed During This Visit: yes Reason for Continuing Indwelling Catheter: Acute Urinary Retention or Obstruction Urinary Catheter Date of Insertion: 03/31/22 Urinary Catheter Time of Insertion: 20:01 Data 03/31/22 03:34 03/31/22 08:02 A&P Assessment and plan (1) Medication adverse effect: (2) Hyponatremia: (3) Urinary retention: (4) Hyperlipemia, mixed: (5) Hypoglycemia due to insulin: (6) DM type 1 (diabetes mellitus, type 1): (7) Smoker: (8) Drug overdose: Qualifiers: Encounter type: initial encounter Injury intent: accidental or unintentional Qualified Code(s): T50.901A - Poisoning by unspecified drugs, medicaments and biological substances, accidental (unintentional), initial encounter (9) Acute alteration in mental status: (10) Hypertension: (11) Hyperlipidemia: Plan 67-year-old female with past medical history of diabetes, hypertension, dyslipidemia, chronic back pain, likely chronic hyponatremia, history of urinary retention in the past was brought in with chief complaint of altered mental state. She was admitted for the management of. Assessment: Acute metabolic encephalopathy secondary to hyponatremia, unintentional drug overdose (hold trazodone Ambien, oxycodone) Euvolemic hyponatremia: Likely acute on chronic. Baseline serum sodium currently unknown. History of frequent falls with multiple fractures History of hypertension History of diabetes RLS Hypomagnesemia Hypokalemia Plan: CT head without contrast: No acute intracranial pathology Urinalysis: urine specific gravity of 1.010 (at high normal) Urine sodium 71 Urine osmolality pending Serum osmolality pending TSH:1.65 Random cortisol Patient serum sodium currently is at 133, admission serum sodium is 126, she is near goal serum sodium correction. Monitor serum sodium for now. Serum potassium 3.3: Correction done Serum vitamin B12: Serum folic acid Serum Zinc 25-hydroxy vitamin D Monitor intake output charting Continue insulin pump, monitor fingerstick glucose Galvan has been removed, will monitor for any urinary retention, if any then she will be discharged with Galvan and follow-up urology as outpatient. Continue Flomax for now Full code DVT prophylaxis: Lovenox Attestations Medical Necessity Statement*: Patient is in hospital for management of hyponatremia. Time Spent in Patient Care: Greater than 35 minutes (>than 50% of time spent in counselling and/or direct pt care on unit). Coding Level of Care Code Acute Clinical Pharmacy Manager for [employer] Fwd Exam Expanded Problem Focused Diagnoses Medication adverse effect T50.905A Hyponatremia E87.1 Urinary retention R33.9 Hyperlipemia, mixed E78.2 Hypoglycemia due to insulin E16.0; T38.3X5A DM type 1 (diabetes mellitus, type 1) E10.9 Smoker F17.200 Drug overdose T50.901A Encounter type: initial encounter Injury intent: accidental or unintentional Acute alteration in mental status R41.82 Hypertension I10 Hyperlipidemia E78.5
[2022-03-31 15:39] VITALS: BP 129/65; PULSE 79; RESP 16; TEMP 36.8; O2SAT 95
--- NOTE | 2022-03-31 16:09 | PC.NURSE ---
t gao was removed per vo from dr rea at around 1000....pt voided around 1400
[2022-03-31 16:59] LABS: Glucose Point of Care 221 mg/dL (70-110)
--- NOTE | 2022-03-31 17:00 | P.MISC_ITS ---
Miscellaneous Note Note: 67-year-old female with past medical history of diabetes, hypertension, dyslipidemia, chronic back pain, likely chronic hyponatremia, history of urinary retention in the past was brought in with chief complaint of altered mental state.? She was admitted for the management of. Acute metabolic encephalopathy secondary to hyponatremia, unintentional drug overdose ,euvolemic hyponatremia: Likely acute on chronic.CT head without contrast: No acute intracranial pathology, trazodone Ambien, oxycodone was kept on hold,TSH:was normal, urine analysis was done, patient was on gentle I.V hydration with normal saline serum sodium was being monitored,patient was over all doing better, she was alert,aw braulio, oriented* 3 ,denied any nausea,vomiting,headache,muscle cramp,abdominal pain.Wanted her Gao catheter to be removed,which was done,gao was placed on admission for ac urinary retention,she has prior similar h/o ac urinary retention with resolution and she is on tamsulosin at home,caution was being exercised with regards to her opoid pain pills,which unfortunately patient did not liked and opted to sign out AMA.
[2022-03-31 17:40] LABS: Anion Gap 12.8 (5-19); Blood Urea Nitrogen 10 mg/dL (8-23); Calcium 8.6 mg/dL (8.5-10.5); Carbon Dioxide 26 mmol/L (22-29); Chloride 93 mmol/L (98-107); Glomerular Filtration Rate 83.7 mL/min (90-130); Glucose 187 mg/dL (65-115); Osmolality Calculated 270 mOsm/kg (285-295); Potassium 3.8 mmol/L (3.5-5.1); Sodium 128 mmol/L (136-145)
--- NOTE | 2022-03-31 18:15 | PC.NURSE ---
pt requested her ambien and oxycodone as she she had at home,,,,also requested nicotine patch....signed out ama after only getting order for 1x oxycodone order and nicotine patch....refused nicotine patch and oxycodone..dr rea was notified by the charge nurse
[2022-03-31 18:27] VITALS: BP 129/65; PULSE 79; RESP 16; TEMP 36.8; O2SAT 95
[2022-04-03 16:14] LABS: Osmolality Urine 289 mOsm/kg (50-1200)
[2022-04-03 16:24] LABS: Osmolality Serum 280 mOsm/kg (278-305)
== END 2022-03-31 18:29 | disposition left against medical advice (07) ==
LOC: ER 23:09 → MEDSURG 23:15
PROVIDERS: Admitting Provider Internal Medicine; Emergency Provider Emergency Medicine; PCP Family Medicine; Visit Provider Internal Medicine
DX: T50.905A Adverse effect of unspecified drugs, medicaments and biological substances, initial encounter (principal); E87.1 Hypo-osmolality and hyponatremia; R33.9 Retention of urine, unspecified; E78.2 Mixed hyperlipidemia; E16.0 Drug-induced hypoglycemia without coma; E10.9 Type 1 diabetes mellitus without complications; T38.3X5A Adverse effect of insulin and oral hypoglycemic [antidiabetic] drugs, initial encounter; F17.200 Nicotine dependence, unspecified, uncomplicated; T50.901A Poisoning by unspecified drugs, medicaments and biological substances, accidental (unintentional), initial encounter; R41.82 Altered mental status, unspecified; I10 Essential (primary) hypertension; E78.5 Hyperlipidemia, unspecified; Z79.4 Long term (current) use of insulin; Z98.84 Bariatric surgery status; Z91.81 History of falling; F17.210 Nicotine dependence, cigarettes, uncomplicated
CPT/HCPCS: 36415; 36416; 51702; 70450; 80048; 80053; 80307; 81003; 82962; 83036; 83735; 83930; 83935; 84100; 84300; 84443; 85025; 93005; 96361; 96365; 96367; 96372; 96375; 97161; 97165; 99285; G0378; J0360; J1650; J3475; J3480; J7030

== ENCOUNTER 2022-07-26 09:54 | Outpatient (CLI) | payer MEDICARE, SELFPAY ==
--- NOTE | 2022-07-26 10:09 | USCV_ITS ---
India Klein Age: 67 Gender: F : 1955 Exam Date: 07/26/2022 10:40 Ordering Phys: Felisa Rosenthal MD Technologist: SHIRA [place] [facility] [facility] [place]: BLE PAIN Risk Factors: Previous Vascular Surgery: RIGHT LEFT BP: 140.0 / 68.00 BP: 150.0/ 74.00 0 0 Waveform Velocity (cm/s) Velocity (cm/s) Waveform Biphasic 151.6 Iliac Prox 101.4 Biphasic Biphasic 152.0 Iliac Mid 107.7 Biphasic Biphasic 120.8 Iliac Distal 123.0 Biphasic Biphasic 87.2 BRAID FOLDER 146.4 Biphasic Biphasic 109.2 SFA Prox 104.7 Biphasic Biphasic 111.4 SFA Mid 112.5 Biphasic Biphasic SFA Dist Biphasic 124.6 92.4 Biphasic 90.4 POP 63.7 Biphasic Biphasic 85.4 HEAD MACHINE FEEDER 85.4 Biphasic Biphasic 48.1 DPA 71.5 Biphasic 1.0 JOSEPH 0.9 FINDINGS Intimal thickening and minimal plaques in the iliac and femoral arteries bilaterally. Resting JOSEPH 1.0 on the right and 0.9 on the left side. Mid normal Doppler flow velocities and waveforms CONCLUSIONS Normal resting JOSEPH of 1.0 on the right side Slightly diminished resting JOSEPH 0.9 on the left side, suggesting mild peripheral arterial disease Intimal thickening and minimal plaques in the iliac and femoral arteries bilaterally Dr Shane Zhao MD [facility] (Electronically Signed) Final Date: 28 July 2022 00:10 S
== END 2022-07-26 09:55 | disposition home or self-care (01) ==
PROVIDERS: PCP Family Medicine; Visit Provider Family Medicine
DX: I73.9 Peripheral vascular disease, unspecified (principal)
CPT/HCPCS: 93925

== ENCOUNTER → 2022-07-31 08:42 | Outpatient (BNVA) | payer MEDICARE, SELFPAY | PROVIDERS: PCP Family Medicine; Visit Provider Otolaryngology | DX: E86.0 Dehydration (principal); K11.7 Disturbances of salivary secretion; Z87.891 Personal history of nicotine dependence | CPT/HCPCS: 99212; 99213 ==

== ENCOUNTER → 2022-08-30 08:06 | Outpatient (BNVA) | payer MEDICARE, SELFPAY | PROVIDERS: PCP Family Medicine; Visit Provider Internal Medicine | DX: E10.649 Type 1 diabetes mellitus with hypoglycemia without coma (principal); E16.0 Drug-induced hypoglycemia without coma; E78.2 Mixed hyperlipidemia; X58.XXXA Exposure to other specified factors, initial encounter; T38.3X5A Adverse effect of insulin and oral hypoglycemic [antidiabetic] drugs, initial encounter; Z79.4 Long term (current) use of insulin | CPT/HCPCS: 99213; 99214 ==

== ENCOUNTER → 2022-10-03 09:09 | Outpatient (BNVA) | payer MEDICARE, SELFPAY | PROVIDERS: PCP Family Medicine; Visit Provider Internal Medicine | DX: E10.649 Type 1 diabetes mellitus with hypoglycemia without coma (principal); E16.0 Drug-induced hypoglycemia without coma; T38.3X5A Adverse effect of insulin and oral hypoglycemic [antidiabetic] drugs, initial encounter; E78.2 Mixed hyperlipidemia; Z79.4 Long term (current) use of insulin; X58.XXXA Exposure to other specified factors, initial encounter | CPT/HCPCS: 99214 ==

== ENCOUNTER → 2023-02-15 10:21 | Outpatient (BNVA) | payer MEDICARE, SELFPAY | PROVIDERS: PCP Family Medicine; Visit Provider Internal Medicine | DX: E16.0 Drug-induced hypoglycemia without coma; T38.3X5A Adverse effect of insulin and oral hypoglycemic [antidiabetic] drugs, initial encounter; E78.5 Hyperlipidemia, unspecified; E78.2 Mixed hyperlipidemia; E10.649 Type 1 diabetes mellitus with hypoglycemia without coma; Z79.4 Long term (current) use of insulin; X58.XXXA Exposure to other specified factors, initial encounter | CPT/HCPCS: 36415; 80053; 80061; 82044; 83036; 99214 ==

== ENCOUNTER 2023-02-20 09:56 | Outpatient (CLI) | payer MEDICARE, SELFPAY ==
--- NOTE | 2023-02-20 10:12 | XRR_ITS ---
PROCEDURE INFORMATION: Exam: XR Left Hip Exam date and time: 02/20/2023 10:27 AM Age: 67 years old Clinical indication: Hip pain; Left hip; Additional info: Pain in left hip.No history of trauma or recent surgery is provided. TECHNIQUE: Imaging protocol: Radiologic exam of the left hip. 3image(s) are provided. Views: 2 or 3 views hip with pelvis when performed. COMPARISON: 1. MR hip LT wo con* [id number] 09/30/2020 7:26 AM 2. CR XR lumbar spine 2-3V* [id number] 02/20/2023 10:27 AM 3. CR XR sacrum coccyx min 2V [id number] 01/26/2021 1:43 PM 4. CR XR hip LT 2-3V wo/w pel* [id number] 08/30/2020 2:32 PM FINDINGS: Bones/joints: Osseous alignment is maintained.No interval displaced fracture or dislocation is appreciated. There is some chronic degeneration as well as chronic posttraumatic type appearance about the pubic symphysis with similar orientation. Symmetric appearance of the sacral arcuate lines and sacroiliac junctions are appreciated. There is some mild chronic degeneration of the left hip level including some slight acetabular rim and subcapital spurring. Previously described subchondral cystic related changes are less conspicuous on plain film. Soft tissues: No radiopaque foreign body or subcutaneous emphysema is appreciated. Vasculature: There are atherosclerotic vascular calcifications present. Other findings: No other significant interval changes are appreciated. XR/XR hip LT 2-3V wo/w pel* [id number] IMPRESSION: Osseous alignment is maintained with some similar chronic appearing degeneration of the left hip. No fracture or dislocation is appreciated.If there is persistent pain or limited range of motion then consider MRI.
--- NOTE | 2023-02-20 10:17 | XRR_ITS ---
PROCEDURE INFORMATION: Exam: XR Lumbosacral Spine Exam date and time: 02/20/2023 10:27 AM Age: 67 years old Clinical indication: Pain; Other: Left hip; Additional info: Pain in left hip.No history of trauma or recent surgery is provided. TECHNIQUE: Imaging protocol: Radiologic exam of the lumbosacral spine. 3image(s) are provided. Views: 2 or 3 views. COMPARISON: 1. CR XR sacrum coccyx min 2V [id number] 01/26/2021 1:43 PM 2. CR XR hip LT 2-3V wo/w pel* [id number] 02/20/2023 10:27 AM 3. CR XR lumbar spine 2-3V* [id number] 10/31/2019 12:47 PM FINDINGS: Bones/joints: There are postsurgical changes of the upper abdomen as well as the right femur demonstrated. Symmetric appearance of the sacral arcuate lines and sacroiliac junctions are appreciated. There is some subtle levocurvature versus positioning at the thoracolumbar junction similar overall. There are some chronic appearing degenerative changes of the hips. There is some chronic appearing decreased superior endplate height at the L1 as well as L4 vertebral body similar overall. There is some mild chronic appearing disc space narrowing including at the L5-S1 level with some posterior element hypertrophy. Osseous alignment is maintained.No interval displaced fracture or dislocation is appreciated. Soft tissues: No radiopaque foreign body or subcutaneous emphysema is appreciated. Gastrointestinal tract: There is abundant stool throughout the colon suggestive of constipation. Vasculature: There are some atherosclerotic vascular calcifications present. Other findings: No other significant interval changes are appreciated. XR/XR lumbar spine 2-3V* [id number] IMPRESSION: Osseous alignment is maintained with some chronic degeneration and chronic superior endplate compression related changes of the L1 and L4 levels.No interval fracture or dislocation is appreciated.
== END 2023-02-20 09:57 | disposition home or self-care (01) ==
PROVIDERS: PCP Family Medicine; Visit Provider Family Medicine
DX: M16.12 Unilateral primary osteoarthritis, left hip (principal)
CPT/HCPCS: 72100; 73502

== ENCOUNTER → 2023-05-18 10:32 | Outpatient (BNVA) | payer MEDICARE, SELFPAY | PROVIDERS: PCP Family Medicine; Visit Provider Internal Medicine | DX: E78.2 Mixed hyperlipidemia; E16.0 Drug-induced hypoglycemia without coma; T38.3X5A Adverse effect of insulin and oral hypoglycemic [antidiabetic] drugs, initial encounter; E78.5 Hyperlipidemia, unspecified; E10.649 Type 1 diabetes mellitus with hypoglycemia without coma; E10.65 Type 1 diabetes mellitus with hyperglycemia; X58.XXXA Exposure to other specified factors, initial encounter; Z79.4 Long term (current) use of insulin | CPT/HCPCS: 99214 ==